=== PATIENT | male | born 1935 | race Caucasian/White ===

== ENCOUNTER 2016-09-11 18:22 | Emergency (ER) | payer OTHER ==
[2016-09-11 18:33] VITALS: TEMP 98.1; O2SAT 98
--- NOTE | 2016-09-11 18:56 | EDPHY ---
H & P Stated Complaint: Acute nausea. Can't keep anything down. Time Seen by Provider: 09/11/16 18:52 HPI/ROS: CHIEF COMPLAINT: Nausea and vomiting HISTORY OF PRESENT ILLNESS: The patient is an 81-year-old gentleman who presents to the ED with acute nausea and vomiting. 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 The patient reports he was discharged approximately 5 days ago. He initially was doing well. He developed 4 episodes of vomiting on Thursday. Since that time he has had early satiety and nausea. He has continued to move his bowels and passed gas. The patient has no fever. REVIEW OF SYSTEMS: A comprehensive 10 point review of systems is otherwise negative aside from elements mentioned in the history of present illness. Source: Patient - Personal History Current Tetanus Diphtheria and Acellular Pertussis (TDAP): Yes - Medical/Surgical History Hx Asthma: No Hx Chronic Respiratory Disease: No Hx Diabetes: No Hx Cardiac Disease: Yes Hx Renal Disease: No Hx Cirrhosis: No Hx Alcoholism: No Hx HIV/AIDS: No Hx Splenectomy or Spleen Trauma: No Other PMH: Atrial fibrillation, irritable bowel disease, kidney stones, diverticulosis - Social History Smoking Status: Former smoker - Physical Exam Exam: General Appearance: Thin male, no acute distress Eyes: Pupils equal and round no pallor or injection ENT, Mouth: Mucous membranes moist Respiratory: There are no retractions, lungs are clear to auscultation Cardiovascular: Regular rate and rhythm Gastrointestinal: Abdomen is soft and nontender, no masses, bowel sounds normal , surgical incision is clean dry and intact Neurological: A&O, normal motor function, normal sensory exam, normal cranial nerves Skin: Warm and dry, no rashes Musculoskeletal: Neck is supple nontender Extremities: symmetrical, full range of motion Constitutional: Initial Vital Signs Temperature (C) 36.7 C 09/11/16 18:28 Heart Rate 64 09/11/16 18:28 Respiratory Rate 18 09/11/16 18:28 Blood Pressure 134/91 H 09/11/16 18:28 O2 Sat (%) 98 09/11/16 18:28 O2 Delivery Mode Room Air Allergies/Adverse Reactions: iodine Allergy (Verified 09/11/12 00:07) Home Medications: Medication Instructions Recorded Sertraline HCl [Zoloft 50mg (*)] 50 mg PO DAILY 10/27/13 Warfarin Sodium [Coumadin 3MG (*)] 3 mg PO DAILY@16 10/27/13 Esomeprazole Magnesium [Nexium] 20 mg PO DAILY 08/29/16 Herbals/Supplements -Info Only 1 ea PO DAILY 08/29/16 Latanoprost 0.005% [Xalatan 0.005% 1 drops EACHEYE HS 08/29/16 (*)] Melatonin [Melatonin 3 MG (*)] 3 mg PO HS 08/29/16 Aspirin [Aspirin 81mg (*)] 81 mg PO DAILY 09/01/16 Cholecalciferol Vit D3 [Vitamin D3 1,000 units PO DAILY 09/01/16 (*)] clonazePAM [Klonopin (*)] 0.75 mg PO HS 09/01/16 Hydrocod/APAP 7.5/325 in 15Ml 10 - 20 ml PO Q4 PRN #0 udcup 09/05/16 [Hycet Oral Liquid (*) 7.5MG-325MG/15ML] Metoclopramide [Reglan 10 mg tab 10 mg PO TID PRN #30 tab 09/11/16 (*)] Medical Decision Making - Diagnostics Imagin View Abdomen History: Abdominal surgery Thursday, nausea and vomiting, diarrhea x2 days, history of aspiration and reflux Findings: The lung bases are well aerated. Heart size is normal. There are scattered small air- fluid levels in the colon. There are no dilated loops. There is a small amount of retroperitoneal gas in the right upper quadrant and a small amount of free air beneath the lateral left hemidiaphragm, likely postoperative. There is atherosclerotic calcification of the aorta. There is no obvious ascites. Impression: Retroperitoneal and free air likely postoperative. No obstruction or obvious ileus ED Course/Re-evaluation: I reviewed the patient's past medical records. The patient's abdominal examination is benign. He is afebrile. His laboratory studies are within normal limits. The patient did have an IV established. He received IV Reglan and 2 L of normal saline. The patient was reportedly discharged with Reglan which he was unable to fill. I did curbside Dr. Guzman who is covering for the patient's primary surgeon Dr. Briseno. The patient will be discharged home with a prescription for Reglan. At this point time there is no evidence of an obvious obstruction. The patient's abdominal examination is benign. His laboratory studies are unremarkable. The patient will be instructed to follow up with Dr. Briseno. He should return to the ED for any worsening symptoms or other concerns. Differential Diagnosis: Differential diagnosis considered includes dehydration, bowel obstruction, metabolic abnormality, constipation, postoperative infection - Data Points Laboratory Results: Laboratory Results 09/11/16 19:25 09/11/16 19:25 09/11/16 19:25 WBC 8.84 10^3/uL (3.80-9.50) RBC 4.61 10^6/uL (4.40-6.38) Hgb 14.2 g/dL (13.7-17.5) Hct 40.0 % (40.0-51.0) MCV 86.8 fL (81.5-99.8) MCH 30.8 pg (27.9-34.1) MCHC 35.5 g/dL (32.4-36.7) RDW 13.0 % (11.5-15.2) Plt Count 329 10^3/uL (150-400) MPV 9.4 fL (8.7-11.7) Neut % (Auto) 73.9 % (39.3-74.2) Lymph % (Auto) 16.3 % (15.0-45.0) [place] % (Auto) 6.4 % (4.5-13.0) Eos % (Auto) 2.6 % (0.6-7.6) Baso % (Auto) 0.5 % (0.3-1.7) Nucleat RBC Rel Count 0.0 % (0.0-0.2) Absolute Neuts (auto) 6.53 H 10^3/uL (1.70-6.50) Absolute Lymphs (auto) 1.44 10^3/uL (1.00-3.00) Absolute Monos (auto) 0.57 10^3/uL (0.30-0.80) Absolute Eos (auto) 0.23 10^3/uL (0.03-0.40) Absolute Basos (auto) 0.04 10^3/uL (0.02-0.10) Absolute Nucleated RBC 0.00 10^3/uL (0-0.01) Immature Gran % 0.3 % (0.0-1.1) Immature Gran # 0.03 10^3/uL (0.00-0.10) Sodium 137 mEq/L (134-144) Potassium 4.0 mEq/L (3.5-5.2) Chloride 99 mEq/L (97-110) Carbon Dioxide 23 mEq/l (22-31) Anion Gap 15 mEq/L (8-16) BUN 23 mg/dL (7-23) Creatinine 0.9 mg/dL (0.7-1.3) Estimated GFR > 60 Glucose 95 mg/dL (70-100) Calcium 9.5 mg/dL (8.5-10.4) Total Bilirubin 2.0 H mg/dL (0.1-1.4) Conjugated Bilirubin 0.4 mg/dL (0.0-0.5) Unconjugated Bilirubin 1.6 H mg/dL (0.0-1.1) AST 28 IU/L (17-59) ALT 48 IU/L (21-72) Alkaline Phosphatase 69 IU/L (38-126) Total Protein 7.1 g/dL (6.3-8.2) Albumin 4.3 g/dL (3.5-5.0) Lipase 134.0 IU/L (23-300) Medications Given: Discontinued Medications Sodium Chloride (Ns) 1,000 mls @ 0 mls/hr IV ONCE ONE PRN Reason: Wide Open Stop: 09/11/16 18:58 Last Admin: 09/11/16 19:51 Dose: 1,000 mls Metoclopramide HCl (Reglan Injection) 10 mg IVP EDNOW ONE Stop: 09/11/16 19:06 Last Admin: 09/11/16 19:50 Dose: 10 mg Departure - Departure Disposition: Home, Routine, Self-Care Clinical Impression: Nausea, History of abdominal surgery Condition: Good Instructions: Acute Nausea and Vomiting (ED) Additional Instructions: 1. Please take Reglan as prescribed for nausea. 2. Please schedule a follow-up appointment with Dr. Brsieno. Please contact his office tomorrow to schedule a follow-up visit. 3. Please return to the ED for markedly worsening symptoms, fever, severe pain, intractable vomiting or other concerns. Referrals: Jt Little MD [Primary Care Provider] - As per Instructions Prescriptions: Metoclopramide [Reglan 10 mg tab (*)] 10 mg PO TID PRN #30 tab PRN Reason: for nausea
[2016-09-11] MEDS ORDERED: NS 1,000 ML IV ONE (18:57)
[2016-09-11] MEDS ORDERED: METOCLOPRAMIDE 10 MG/2 ML VIAL IVP ONE (19:05)
[2016-09-11 19:38] LABS: % IMMATURE GRANULYOCYTES 0.3 % (0.0-1.1); ABSOLUTE IMMATURE GRANULOCYTES 0.03 10^3/uL (0.00-0.10); ADD DIFF? NO; ADD MORPH? NO; ADD SCAN? NO; ATYPICAL LYMPHOCYTE FLAG 40 (0-99); FRAGMENT RBC FLAG 20 (0-99); HEMOGLOBIN 14.2 g/dL (13.7-17.5); LEFT SHIFT FLG 0 (0-99); LIPEMIA HEMOLYSIS FLAG 90 (0-99); MEAN CELL HEMOGLOBIN 30.8 pg (27.9-34.1); MEAN CELL HEMOGLOBIN CONCENTR. 35.5 g/dL (32.4-36.7); MEAN CELL VOLUME 86.8 fL (81.5-99.8); MEAN PLATELET VOLUME 9.4 fL (8.7-11.7); PLATELET CLUMPS FLAG 20 (0-99); PLATELET COUNT 329 10^3/uL (150-400); RED BLOOD CELL COUNT 4.61 10^6/uL (4.40-6.38)
[2016-09-11 19:45] LABS: ALANINE AMINOTRANSFERASE 48 IU/L (21-72); ALBUMIN 4.3 g/dL (3.5-5.0); ALKALINE PHOSPHATASE 69 IU/L (38-126); ANION GAP 15 mEq/L (8-16); ASPARTATE AMINOTRANSFERASE 28 IU/L (17-59); BILIRUBIN-CONJUGATED 0.4 mg/dL (0.0-0.5); BILIRUBIN-UNCONJUGATED 1.6 mg/dL (0.0-1.1); CALCIUM 9.5 mg/dL (8.5-10.4); CARBON DIOXIDE 23 mEq/l (22-31); CHLORIDE 99 mEq/L (97-110); CREATININE 0.9 mg/dL (0.7-1.3); GLOMERULAR FILTRATION RATE > 60; GLUCOSE 95 mg/dL (70-100); SODIUM 137 mEq/L (134-144); TOTAL PROTEIN 7.1 g/dL (6.3-8.2)
--- NOTE | 2016-09-11 19:58 | DX ---
2 View Abdomen History: Abdominal surgery Alicia, nausea and vomiting, diarrhea x2 days, history of aspiration and reflux Findings: The lung bases are well aerated. Heart size is normal. There are scattered small air-fluid levels in the colon. There are no dilated loops. There is a small amount of retroperitoneal gas in th e right upper quadrant and a small amount of free air beneath the lateral left hemidiaphragm, likely postoperative. There is atherosclerotic calcification of the aorta. There is no obvious ascites. Impression: Retroperitoneal and free air likely postoperative. No obstruction or obvious ileus.
[2016-09-11] MEDS ORDERED: METOCLOPRAMIDE 10 MG TAB PO ONE (20:32)
[2016-09-11 20:45] VITALS: BP 128/72; PULSE 78; RESP 16
== END 2016-09-11 20:58 | disposition home or self-care (01) ==
DX: R11.0 Nausea (principal); Z93.4 Other artificial openings of gastrointestinal tract status; Z87.891 Personal history of nicotine dependence; Z79.01 Long term (current) use of anticoagulants; Z79.82 Long term (current) use of aspirin
CPT/HCPCS: 74000; 96361; 96374; 99284; J2765

== ENCOUNTER 2016-09-16 07:51 | Inpatient (IN) | payer OTHER ==
--- NOTE | 2016-09-16 09:51 | US ---
Sonography Limited to the Right Upper Quadrant of the Abdomen Clinical History: 81-year-old male with nausea, vomiting, right upper quadrant pain, and recent gastr ojejunostomy surgery secondary to duodenal stenosis. ICD-10 Diagnostic Codes: R11.2 and R10.11. Technique: A curvilinear 5 MHz transducer was used to sonographically evaluate the right upper quadra nt of the abdomen. Color Doppler was also used. Comparison Studies: Right upper quadrant abdominal sonography, dated October 12, 2008, and CT imaging of the abdomen, dated March 31, 2016. Findings: The pancreatic head, neck, and proximal body are unremarkable. The distal pancreatic body a nd tail are partially obscured by bowel gas. The abdominal aorta is normal in size and tapers normall y with some atherosclerotic features. The visualized IVC is normal in caliber. There is no ascites or right pleural effusion. The hepatic vein trifurcation is normal. The main portal vein is patent. The liver measures 14.1 cm along the right midaxillary line. There is no focal hepatic mass. There is no intrahepatic or extrahepatic bile duct dilatation. The common bile duct measures 2.9 mm. The gallbla dder is partially contracted with a wall thickness of 3.2 mm. There is no pericholecystic fluid, sono graphic Sanchez sign, cholelithiasis, or sludge. The right kidney is normal, measuring 10.2 x 5.6 x 4. 8 cm with a renal cortical thickness of 1.5 cm. There is no hydronephrosis or perinephric fluid. The work from home indicated that there was pronounced bowel gas, limiting aspects of the study. Impression: There is no evidence of cholelithiasis, although the gallbladder is partially contracted and the wall thickness is at the upper limits of normal. There is no bile duct dilatation.
--- NOTE | 2016-09-16 10:32 | DX ---
Limited Single-Contrast Upper GI Clinical History: 81-year-old male who had a gastrojejunostomy on September 02, 2016 (secondary to duo denal stenosis and gastric bowel obstruction), and did well initially but has since developed vomitin g and abdominal fullness. Technique: Effervescent crystals were not administered. The patient ingested a single swallow's worth of thick barium, and imaging of the esophagus was performed in the AP projection followed by images including cine clips at the level of the stomach. Fluoroscopy Time: 1.2 minutes (exposure dose of 11.00 mGy). Comparison Study: Upper GI series, dated June 13, 2016. Findings: There is antegrade esophageal motility; however, when the contrast reaches the gastroesopha geal junction, there is a prompt dilutional effect secondary to massive enlargement of the stomach, w ith the viscus distending to the pelvic inlet where contrast layers. There is an air-fluid level in t he stomach near the left hemidiaphragm, and also a couple of small air-fluid levels to the right of m idline in the central abdomen. I discontinued the study at this point and contacted Franchesca at Dr. Mateus Briseno' office, and will hav e the patient follow up with Dr. Briseno. Impression: Massive dilatation of the stomach, suggestive of gastric outlet obstruction.
[2016-09-16] MEDS ORDERED: HYDROmorphONE/DILAUDID 1 MG/ML SYR IVP PRN (12:49)
[2016-09-16] MEDS: ONDANSETRON 4 MG/2 ML VIAL IVP PRN (13:39)
[2016-09-16] MEDS: D5W 1/2 NS W/ 20 KCl/L 1,000 ML IV SCH ×2 (13:39→20:27)
--- NOTE | 2016-09-16 14:07 | GHP ---
[f rep st] HISTORY AND PHYSICAL DATE OF ADMISSION: 09/16/2016 HISTORY OF PRESENT ILLNESS: The patient is an 81-year-old male who was diagnosed at an outside insti tution with duodenal stenosis. He underwent an open gastrojejunostomy with Dr. Briseno on September 02, 2016. At that time, he had chronic abdominal pain complaints as well as 6 months of weight loss. E ndoscopy and small bowel follow-through were done prior to surgery. All biopsies were benign. He un derwent surgery knowing that his problem could also be related to delayed gastric emptying. His surg tiesha was uncomplicated. At the time, there were no signs of obvious cancer causing blockage. He heal ed well, and was discharged in stable condition. Over the last week, the patient has complained of progressive nausea and sometimes bilious vomiting. He was seen in our clinic and sent for imaging. Ultrasound showed no problems with his gallbladder. A partial upper GI series showed a large distended stomach. He denies fevers or chills. He has d anorexia and small formed bowel movements and is passing gas. 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 MEDICATIONS: Include Coumadin, Zoloft, and clonazepam. PAST SURGICAL HISTORY: Includes gastrojejunostomy as described above. Also, elbow, foot, knee surge ry, hernia repair, and tonsillectomy. ALLERGIES: No known drug allergies. 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 REVIEW OF SYSTEMS: Please see HPI. PHYSICAL EXAMINATION: VITAL SIGNS: Temperature 36.3, oxygenation 100% on room air, respiratory rate 16, heart rate 60, blood pressure 128/90. GENERAL: A somewhat chronically ill-appearing 81-year-ol d male, alert and oriented, in mild distress with dry heaves. HEENT: No jaundice. RESPIRATORY: Cl ear to auscultation bilaterally. CARDIAC: Irregular rhythm, regular rate. ABDOMEN: Distended, mos t markedly on the left side, nontender. Well-healing incisions without erythema or swelling. EXTREM ITIES: Warm and dry without edema. 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 PLAN: Admit the patient for observation. We will place a nasogastric tube for decompression. We wi ll support him with IV fluids, antiemetics as needed. We will be getting an abdominal film in the mo rning to follow his gastric distention. I will also hold his Coumadin in case he needs to go back to the operating room, although this is unlikely at this point. I also discussed with Dr. Briseno who wi ll also see the patient, and is aware of his admission. /[id number]/MODL
[2016-09-16 16:03] LABS: INR 2.31 (0.83-1.16); PROTIME(PATIENT) 25.6 SEC (12.0-15.0)
[2016-09-16 16:41] LABS: ANION GAP 14 mEq/L (8-16); CALCIUM 9.5 mg/dL (8.5-10.4); CARBON DIOXIDE 22 mEq/l (22-31); CHLORIDE 99 mEq/L (97-110); CREATININE 0.9 mg/dL (0.7-1.3); GLOMERULAR FILTRATION RATE > 60; GLUCOSE 139 mg/dL (70-100); POTASSIUM 4.8 mEq/L (3.5-5.2); SODIUM 135 mEq/L (134-144)
[2016-09-16] MEDS: METOCLOPRAMIDE 10 MG/2 ML VIAL IVP SCH (18:55)
[2016-09-16] MEDS ORDERED: LIDOCAINE 2% JELLY 20 ML (UROJECT) ONE (20:08)
[2016-09-16] MEDS ORDERED: LORazepam 2 MG/ML INJ IVP PRN (20:35)
[2016-09-16] MEDS ORDERED: LORazepam 0.5 MG TAB PO PRN (20:35)
[2016-09-17] MEDS: METOCLOPRAMIDE 10 MG/2 ML VIAL IVP SCH ×4 (00:10→18:48)
[2016-09-17] MEDS ORDERED: ZOFRAN 4 MG/5 ML PO PRN (07:38)
[2016-09-17] MEDS ORDERED: LORazepam 0.5 MG TAB PO PRN (07:38)
[2016-09-17] MEDS ORDERED: ONDANSETRON DISINTEGRATING 4 MG TAB PO PRN (07:48)
[2016-09-17] MEDS ORDERED: NON-FORMULARY NEW DRUG (Esomeprazole Magnesium [Nexium] 20 MG) PO SCH (09:00)
[2016-09-17] MEDS: CHOLECALCIFEROL VIT D3 1,000 UNITS TAB PO SCH (10:40)
[2016-09-17] MEDS: PANTOPRAZOLE SODIUM 40 MG TAB PO SCH (10:40)
--- NOTE | 2016-09-17 11:39 | WOCRNPDOC ---
WOCRN Advanced Assessment Note - Skin Integrity Problem, Advanced Assess Coccyx Pressure Injury Dressing Type: Allevyn Life Dressing Description: Clean/Dry, Intact Exudate Amount: None Exudate Characteristic(s): None Integumentary Issue Intervention: Visualized Under Dressing Charly Wound Tissue: Blanching, Erythema, Intact Charly Wound Swelling: None Wound Bed Color: Red Site Odor: None Site Measurement - Head-to-Toe Length X Width X Depth (cm): 1.2cmx0.3eab0tr Pressure Injury Stage: Stage 1 Pressure Injury Present on Admit: Yes (Patient admitted 09/16) Skin Integrity Problem Comment: Small area of non-blanching erythema noted on patient's coccyx, consistent in appearance w/ stage I pressure injury. Patient is cachectic in appearance, and as a result has a prominent coccyx. Blanching erythema charly-wound, presently intact. Discussed the importance of frequent repositioning, side to side, with patient, and he verbalized understanding. Order placed for Accu-max pump to be applied to existing mattress, along w/ protective dressing. Report given to grain elevator operator Katti.
--- NOTE | 2016-09-17 11:53 | SOAPPROG ---
[id number] 09/02/16. Now admitted c massive gastric distention, N/V. NGT placed by Dr. Briseno last evening. 3500cc out. Patient much more comfortable. Will continue to observe while decompressed. AXR today. Consider eventual repeat UGIS vs endoscopy. It's possible pt needs more time for return of gastric motility and for gastrojejunostomy to empty. Continue reglan. Stage 1 sacral decubitus ulcer. Evaluated by wound care. Patient is ambulatory. Recommend get OOB, change positions while in bed. He's currently on R hip. 09/17/16 12:22 Subjective: N/V improved since NG placement. Objective: Vital Signs Temp Pulse Resp BP Pulse Ox 36.3 C 81 16 107/64 94 09/17/16 11:45 09/17/16 11:45 09/17/16 11:45 09/17/16 11:45 09/17/16 11:45 Laboratory Results 09/16/16 15:45 09/16/16 09/17/16 09/18/16 05:59 05:59 05:59 Intake Total 2200 Output Total 5400 Balance -3200 PT 25.6 SEC (12.0-15.0) H 09/16/16 15:45 INR 2.31 (0.83-1.16) H 09/16/16 15:45 alert, nad mmm no jaundice ctab anteriorly abd soft, less L sided distention, +BS ICD10 Worksheet Patient Problems: Problems Problem Status Diagnosed Gastric outlet obstruction Acute
--- NOTE | 2016-09-17 12:57 | DX ---
Two-view abdomen series 1045 hours. History: Gastric distention. History of gastrojejunostomy. Findings: Comparison to upper GI series from September 16, 2016. The gastric distention is not appreciated on today's study with a mild amount residual contrast in th e decompressed stomach. Contrast is also noted in the decompressed small and large bowel. The NG tube tip is positioned above the GE junction. There are no significantly dilated loops of bowel. There ar e no air-fluid levels or free air. No masses are seen. Degenerative changes are noted at the lumbar s pine. Impression: 1. The stomach is now decompressed. 2. NG tube tip just above the GE junction.
[2016-09-17] MEDS: D5W 1/2 NS W/ 20 KCl/L 1,000 ML IV SCH (13:12)
--- NOTE | 2016-09-17 15:39 | SOAPPROG ---
ARIE Progress Note Assessment/Plan: Assessment:Plan: I know Omar form outpt eval. He had GOO from duodenal stenosis that was eventually evaluated at [place] and they rec'd surgery which he had here with Dr. Briseno. 1) GOO - prob functional from surgery, I will follow and if needed we can perform EGD. I did speak with Dr. Briseno and he is optimistic that this may all be functional and will resolve without intervention. Plan as per Dr. Briseno will follow 09/17/16 15:36 Subjective: CC- functional GOO Omar feels better with NGT in place, removed 3000 ml plus of fluid Objective: Vital Signs Temp Pulse Resp BP Pulse Ox 36.3 C 81 16 107/64 94 09/17/16 11:45 09/17/16 11:45 09/17/16 11:45 09/17/16 11:45 09/17/16 11:45 Laboratory Results 09/16/16 15:45 09/16/16 09/17/16 09/18/16 05:59 05:59 05:59 Intake Total 2200 Output Total 5400 Balance -3200 PT 25.6 SEC (12.0-15.0) H 09/16/16 15:45 INR 2.31 (0.83-1.16) H 09/16/16 15:45 A+Ox3 CTA S1S2 +BS, soft some mild tenderness no r/g ICD10 Worksheet Patient Problems: Problems Problem Status Diagnosed Gastric outlet obstruction Acute - ICD10 Problem Qualifiers (1) Gastric outlet obstruction
[2016-09-17] MEDS: MELATONIN 3 MG TAB PO SCH (21:11)
[2016-09-17] MEDS: LATANOPROST 0.005% 2.5 ML OPHT DROPS EACHEYE SCH (21:11)
[2016-09-17] MEDS: clonazePAM 0.5 MG TAB PO SCH (21:11)
[2016-09-18] MEDS: METOCLOPRAMIDE 10 MG/2 ML VIAL IVP SCH ×5 (02:10→23:49)
[2016-09-18] MEDS: D5W 1/2 NS W/ 20 KCl/L 1,000 ML IV SCH (05:59)
[2016-09-18] MEDS: PANTOPRAZOLE SODIUM 40 MG TAB PO SCH (10:29)
[2016-09-18] MEDS: CHOLECALCIFEROL VIT D3 1,000 UNITS TAB PO SCH (10:29)
[2016-09-18] MEDS: PANTOPRAZOLE SODIUM 40 MG in NS 100 ML IV SCH (11:14)
[2016-09-18 11:35] LABS: INR 3.23 (0.83-1.16); PROTIME(PATIENT) 33.5 SEC (12.0-15.0)
--- NOTE | 2016-09-18 12:26 | SOAPPROG ---
SOAP Progress Note Assessment/Plan: Assessment: 81yo male s/p gastrojejunostomy, admitted for nausea, vomiting. Small Bowel follow through shows some emptying into duodenum. frustrated wit the overall situation/condition, wonders what the options are, pain well controlled PE NG tube in place awake alert Abdomen nondistended, incisions clean and dry Plan: await further bowel function greater than 20min spent with pt reviewing options, treatment plan -- explained that after this surgery it take some time for stomach to begin working properly due to many months of being distended. appreciate Dr Khan info given to patient. 09/18/16 12:22 Objective: Vital Signs Temp Pulse Resp BP Pulse Ox 36.6 C 90 16 117/82 H 93 09/18/16 08:40 09/18/16 08:40 09/18/16 08:40 09/18/16 08:40 09/18/16 08:40 Laboratory Results 09/16/16 15:45 09/17/16 09/18/16 09/19/16 05:59 05:59 05:59 Intake Total 2200 1850 1393 Output Total 5400 1400 1400 Balance -3200 450 -7 PT 33.5 SEC (12.0-15.0) H 09/18/16 11:20 INR 3.23 (0.83-1.16) H 09/18/16 11:20 ICD10 Worksheet Patient Problems: Problems Problem Status Diagnosed Gastric outlet obstruction Acute
[2016-09-18] MEDS ORDERED: D10W 1,000 ML IV PRN (12:30)
[2016-09-18] MEDS ORDERED: ALTEPLASE 2 MG VIAL IVP PRN (12:32)
--- NOTE | 2016-09-18 12:36 | SOAPPROG ---
ARIE Progress Note Assessment/Plan: Assessment:Plan: I know Omar form outpt eval. He had GOO from duodenal stenosis that was eventually evaluated at [place] and they rec'd surgery which he had here with Dr. Briseno. 1) GOO - prob functional from surgery, I will follow and if needed we can perform EGD. I did speak with Dr. Briseno and he is optimistic that this may all be functional and will resolve without intervention. Plan as per Dr. Briseno will follow 09/17/16 15:36 09/18/16 12:33 as above 1) GOO - likely functional from edema and poor gastric motility. I will speak with Dr. Briseno today. For now conservative tx 2) Nutrition - possible IV nutrition if NGT and NPO will be a number of days will follow Subjective: CC- functional GOO, hx duodenal stenosis s/p gastrojej Omar is frustrated with events, he has been dealing with this for approx 7 months he has lost a lot of weight and is debilitated from al of this Objective: Vital Signs Temp Pulse Resp BP Pulse Ox 36.6 C 90 16 117/82 H 93 09/18/16 08:40 09/18/16 08:40 09/18/16 08:40 09/18/16 08:40 09/18/16 08:40 Laboratory Results 09/16/16 15:45 09/17/16 09/18/16 09/19/16 05:59 05:59 05:59 Intake Total 2200 1850 1393 Output Total 5400 1400 1400 Balance -3200 450 -7 PT 33.5 SEC (12.0-15.0) H 09/18/16 11:20 INR 3.23 (0.83-1.16) H 09/18/16 11:20 A+Ox3 CTA S1S2, +BS, soft tender no r/g ICD10 Worksheet Patient Problems: Problems Problem Status Diagnosed Gastric outlet obstruction Acute - ICD10 Problem Qualifiers (1) Gastric outlet obstruction
[2016-09-18 13:27] LABS: % IMMATURE GRANULYOCYTES 0.5 % (0.0-1.1); ABSOLUTE IMMATURE GRANULOCYTES 0.06 10^3/uL (0.00-0.10); ADD DIFF? NO; ADD MORPH? NO; ADD SCAN? NO; ATYPICAL LYMPHOCYTE FLAG 20 (0-99); FRAGMENT RBC FLAG 0 (0-99); HEMOGLOBIN 13.6 g/dL (13.7-17.5); LEFT SHIFT FLG 30 (0-99); LIPEMIA HEMOLYSIS FLAG 90 (0-99); MEAN CELL HEMOGLOBIN 30.8 pg (27.9-34.1); MEAN CELL HEMOGLOBIN CONCENTR. 34.9 g/dL (32.4-36.7); MEAN CELL VOLUME 88.2 fL (81.5-99.8); MEAN PLATELET VOLUME 9.9 fL (8.7-11.7); PLATELET CLUMPS FLAG 0 (0-99); PLATELET COUNT 339 10^3/uL (150-400); RED BLOOD CELL COUNT 4.42 10^6/uL (4.40-6.38); RED CELL DISTRIBUTION WIDTH 13.1 % (11.5-15.2)
[2016-09-18 13:48] LABS: INR 3.16 (0.83-1.16); PROTIME(PATIENT) 32.9 SEC (12.0-15.0)
[2016-09-18 13:49] LABS: ALANINE AMINOTRANSFERASE 22 IU/L (21-72); ALBUMIN 3.2 g/dL (3.5-5.0); ALKALINE PHOSPHATASE 66 IU/L (38-126); ANION GAP 13 mEq/L (8-16); APTT 45.9 SEC (23.0-38.0); ASPARTATE AMINOTRANSFERASE 14 IU/L (17-59); BILIRUBIN,TOTAL 1.4 mg/dL (0.1-1.4); CALCIUM 9.2 mg/dL (8.5-10.4); CARBON DIOXIDE 20 mEq/l (22-31); CHLORIDE 104 mEq/L (97-110); CREATININE 0.7 mg/dL (0.7-1.3); GLOMERULAR FILTRATION RATE > 60; GLUCOSE 114 mg/dL (70-100); MAGNESIUM 2.2 mg/dL (1.6-2.3); POTASSIUM 4.5 mEq/L (3.5-5.2); SODIUM 137 mEq/L (134-144); TOTAL PROTEIN 6.2 g/dL (6.3-8.2); TRIGLYCERIDE 68 mg/dL (40-150)
--- NOTE | 2016-09-18 16:18 | IR ---
Imaging-Guided Peripherally Inserted Central Catheter History: Central line access for malnutrition. Prophylactic Antibiotic: Cefazolin was not ordered and administered for antimicrobial prophylaxis be cause it was not medically necessary for this procedure. VTE Prophylaxis: There is not an order for VTE prophylaxis to be given within 24 hours after procedu re end time because it was not medically necessary for this procedure. Crosscutting Measure: Patient's current list of medications including all known prescriptions, over- the-counters, herbals, and vitamin/mineral/dietary supplements are reviewed. Medications' name, dosa ge, frequency, and route of administration are confirmed. Technique: Following informed consent, the right arm was prepped and draped in sterile fashion. 1% Xy locaine was used for local anesthetic. All elements of maximal sterile barrier technique including cap, mask, sterile gown, sterile gloves, large sterile sheet, hand hygiene, and 2% chlorhexidine for cutaneous antisepsis, followed. Ultrasound evaluation of potential access site was performed. After successfully identifying a patent vessel, ultrasound guidance was used to puncture the vein. A permanent recording was created for the patient's record. Ultrasound transducer was placed in sterile sleeve and used for real-time imaging guidance over steri le gel to enter the basilic vein. 0.018 measuring wire was passed centrally under fluoroscopic contro l. A skin aiyana with scalpel blade was followed by removing the access needle. A 4 Congolese peel-away sh eath was followed by a 4 Congolese single-lumen central catheter, trimmed to 45 cm length. The tip of t he catheter was positioned centrally and the guidewire removed. A single fluoroscopic spot image was obtained in inspiration. The hub of the catheter was fixed to the skin using a sterile StatLock adhes dominick device, and a sterile dressing was applied. The catheter was irrigated. Findings: The tip of the central catheter terminates at the junction of the superior vena cava and th e right atrium. Fluoroscopy: 0.1 minutes, 1 images Impression: 5 Congolese double lumen peripherally inserted central catheter is ready to use.
[2016-09-18] MEDS: TPN 1 EA BAG IV SCH (20:30)
[2016-09-18] MEDS: LATANOPROST 0.005% 2.5 ML OPHT DROPS EACHEYE SCH (22:02)
[2016-09-18] MEDS: clonazePAM 0.5 MG TAB PO SCH (22:02)
[2016-09-18] MEDS: MELATONIN 3 MG TAB PO SCH (22:02)
[2016-09-19] MEDS: METOCLOPRAMIDE 10 MG/2 ML VIAL IVP SCH ×5 (05:39→19:57)
[2016-09-19 05:55] LABS: % IMMATURE GRANULYOCYTES 0.5 % (0.0-1.1); ABSOLUTE IMMATURE GRANULOCYTES 0.06 10^3/uL (0.00-0.10); ADD DIFF? NO; ADD MORPH? NO; ADD SCAN? NO; ATYPICAL LYMPHOCYTE FLAG 20 (0-99); FRAGMENT RBC FLAG 0 (0-99); HEMATOCRIT 38.2 % (40.0-51.0); HEMOGLOBIN 13.4 g/dL (13.7-17.5); LEFT SHIFT FLG 0 (0-99); LIPEMIA HEMOLYSIS FLAG 90 (0-99); MEAN CELL HEMOGLOBIN 31.8 pg (27.9-34.1); MEAN CELL HEMOGLOBIN CONCENTR. 35.1 g/dL (32.4-36.7); MEAN CELL VOLUME 90.5 fL (81.5-99.8); MEAN PLATELET VOLUME 10.3 fL (8.7-11.7); PLATELET CLUMPS FLAG 10 (0-99); PLATELET COUNT 344 10^3/uL (150-400); RED BLOOD CELL COUNT 4.22 10^6/uL (4.40-6.38); RED CELL DISTRIBUTION WIDTH 13.2 % (11.5-15.2)
[2016-09-19 06:05] LABS: APTT 42.3 SEC (23.0-38.0); INR 2.88 (0.83-1.16); PROTIME(PATIENT) 30.5 SEC (12.0-15.0)
[2016-09-19 06:11] LABS: ALANINE AMINOTRANSFERASE 23 IU/L (21-72); ALKALINE PHOSPHATASE 44 IU/L (38-126); ANION GAP 13 mEq/L (8-16); ASPARTATE AMINOTRANSFERASE 20 IU/L (17-59); BILIRUBIN,TOTAL 1.4 mg/dL (0.1-1.4); CALCIUM 8.5 mg/dL (8.5-10.4); CARBON DIOXIDE 21 mEq/l (22-31); CHLORIDE 101 mEq/L (97-110); CREATININE 0.8 mg/dL (0.7-1.3); GLOMERULAR FILTRATION RATE > 60; POTASSIUM 4.3 mEq/L (3.5-5.2); SODIUM 135 mEq/L (134-144); TOTAL PROTEIN 5.8 g/dL (6.3-8.2)
[2016-09-19 06:29] LABS: GLUCOSE 608 mg/dL (70-100)
[2016-09-19 06:44] LABS: % IMMATURE GRANULYOCYTES 0.6 % (0.0-1.1); ABSOLUTE IMMATURE GRANULOCYTES 0.08 10^3/uL (0.00-0.10); ADD DIFF? NO; ADD MORPH? NO; ADD SCAN? NO; ATYPICAL LYMPHOCYTE FLAG 20 (0-99); FRAGMENT RBC FLAG 0 (0-99); HEMATOCRIT 38.3 % (40.0-51.0); HEMOGLOBIN 13.3 g/dL (13.7-17.5); LEFT SHIFT FLG 0 (0-99); LIPEMIA HEMOLYSIS FLAG 90 (0-99); MEAN CELL HEMOGLOBIN 30.6 pg (27.9-34.1); MEAN CELL HEMOGLOBIN CONCENTR. 34.7 g/dL (32.4-36.7); MEAN CELL VOLUME 88.2 fL (81.5-99.8); MEAN PLATELET VOLUME 9.8 fL (8.7-11.7); PLATELET CLUMPS FLAG 0 (0-99); PLATELET COUNT 327 10^3/uL (150-400); RED BLOOD CELL COUNT 4.34 10^6/uL (4.40-6.38)
[2016-09-19 07:04] LABS: ANION GAP 13 mEq/L (8-16); CALCIUM 9.1 mg/dL (8.5-10.4); CARBON DIOXIDE 22 mEq/l (22-31); CHLORIDE 105 mEq/L (97-110); CREATININE 0.7 mg/dL (0.7-1.3); GLOMERULAR FILTRATION RATE > 60; GLUCOSE 134 mg/dL (70-100); POTASSIUM 4.2 mEq/L (3.5-5.2); SODIUM 140 mEq/L (134-144)
[2016-09-19] MEDS: CHOLECALCIFEROL VIT D3 1,000 UNITS TAB PO SCH (09:49)
[2016-09-19] MEDS: PANTOPRAZOLE SODIUM 40 MG in NS 100 ML IV SCH (09:50)
--- NOTE | 2016-09-19 12:16 | SOAPPROG ---
SOKATERIN Progress Note Assessment/Plan: Assessment: 81yo male s/p gastrojejunostomy, admitted for nausea, vomiting. Small Bowel follow through shows some emptying into duodenum. frustrated wit the overall situation/condition, wonders what the options are, pain well controlled PE NG tube in place awake alert Abdomen nondistended, incisions clean and dry seen by Dr Briseno Plan continue NG tube for some time, hopefully will resolve with continued conservative management. 09/18/16 12:22 09/19/16 12:15 Objective: Vital Signs Temp Pulse Resp BP Pulse Ox 36.6 C 88 16 141/71 H 93 09/19/16 08:05 09/19/16 08:05 09/19/16 08:05 09/19/16 08:05 09/19/16 08:05 Laboratory Results 09/19/16 06:33 09/19/16 06:33 09/18/16 09/19/16 09/20/16 05:59 05:59 05:59 Intake Total 1850 2518 867 Output Total 1400 2350 Balance 450 168 867 PT 30.5 SEC (12.0-15.0) H 09/19/16 05:45 INR 2.88 (0.83-1.16) H 09/19/16 05:45 ICD10 Worksheet Patient Problems: Problems Problem Status Diagnosed Gastric outlet obstruction Acute
--- NOTE | 2016-09-19 15:58 | SOAPPROG ---
ARIE Progress Note Assessment/Plan: Assessment:Plan: I know Omar form outpt eval. 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 Briseno. 1) GOO - prob functional from surgery, I will follow and if needed we can perform EGD. I did speak with Dr. Briseno and he is optimistic that this may all be functional and will resolve without intervention. Plan as per Dr. Briseno will follow 09/17/16 15:36 09/18/16 12:33 as above 1) GOO - likely functional from edema and poor gastric motility. I will speak with Dr. Briseno today. For now conservative tx 2) Nutrition - possible IV nutrition if NGT and NPO will be a number of days will follow 09/19/16 15:55 as above no change in plan still optimistic that conservative tx will resolve issue he is getting some IV nutrition he wanted an enema tonight which I ordered Dr. Monroe is picking up inpt service at 5pm. he doesn't know Omar at all, so I will ask him to follow on computer unless re-consulted thank you Subjective: cc- functional goo, hx duodenal stenosis s/p gastrojejunostomy Omar seems in better spirits today His and sister are in room and I answered all their questions Omar did request an enema tonight Objective: Vital Signs Temp Pulse Resp BP Pulse Ox 36.6 C 88 16 141/71 H 93 09/19/16 08:05 09/19/16 08:05 09/19/16 08:05 09/19/16 08:05 09/19/16 08:05 Laboratory Results 09/19/16 06:33 09/19/16 06:33 09/18/16 09/19/16 09/20/16 05:59 05:59 05:59 Intake Total 1850 2518 867 Output Total 1400 2350 Balance 450 168 867 PT 30.5 SEC (12.0-15.0) H 09/19/16 05:45 INR 2.88 (0.83-1.16) H 09/19/16 05:45 A+Ox3 CTA S1S2, RRR +BS, soft ICD10 Worksheet Patient Problems: Problems Problem Status Diagnosed Gastric outlet obstruction Acute - ICD10 Problem Qualifiers (1) Gastric outlet obstruction
[2016-09-19] MEDS: MELATONIN 3 MG TAB PO SCH (20:15)
[2016-09-19] MEDS: clonazePAM 0.5 MG TAB PO SCH (20:15)
[2016-09-19] MEDS: LATANOPROST 0.005% 2.5 ML OPHT DROPS EACHEYE SCH (20:16)
[2016-09-19] MEDS: TPN 1 EA BAG IV SCH (21:47)
[2016-09-20] MEDS: METOCLOPRAMIDE 10 MG/2 ML VIAL IVP SCH ×4 (00:19→18:30)
[2016-09-20 04:34] LABS: % IMMATURE GRANULYOCYTES 0.8 % (0.0-1.1); ADD DIFF? NO; ADD MORPH? NO; ADD SCAN? NO; ATYPICAL LYMPHOCYTE FLAG 20 (0-99); FRAGMENT RBC FLAG 0 (0-99); HEMATOCRIT 39.3 % (40.0-51.0); HEMOGLOBIN 13.4 g/dL (13.7-17.5); LEFT SHIFT FLG 0 (0-99); LIPEMIA HEMOLYSIS FLAG 90 (0-99); MEAN CELL HEMOGLOBIN 30.4 pg (27.9-34.1); MEAN CELL HEMOGLOBIN CONCENTR. 34.1 g/dL (32.4-36.7); MEAN CELL VOLUME 89.1 fL (81.5-99.8); MEAN PLATELET VOLUME 9.9 fL (8.7-11.7); PLATELET CLUMPS FLAG 0 (0-99); PLATELET COUNT 334 10^3/uL (150-400); RED BLOOD CELL COUNT 4.41 10^6/uL (4.40-6.38); RED CELL DISTRIBUTION WIDTH 12.8 % (11.5-15.2)
[2016-09-20 04:46] LABS: ALANINE AMINOTRANSFERASE 41 IU/L (21-72); ALBUMIN 3.2 g/dL (3.5-5.0); ALKALINE PHOSPHATASE 73 IU/L (38-126); ANION GAP 12 mEq/L (8-16); ASPARTATE AMINOTRANSFERASE 34 IU/L (17-59); BILIRUBIN,TOTAL 1.6 mg/dL (0.1-1.4); CALCIUM 9.1 mg/dL (8.5-10.4); CARBON DIOXIDE 25 mEq/l (22-31); CHLORIDE 104 mEq/L (97-110); CREATININE 0.7 mg/dL (0.7-1.3); GLOMERULAR FILTRATION RATE > 60; GLUCOSE 122 mg/dL (70-100); MAGNESIUM 2.1 mg/dL (1.6-2.3); POTASSIUM 3.6 mEq/L (3.5-5.2); SODIUM 141 mEq/L (134-144); TOTAL PROTEIN 6.3 g/dL (6.3-8.2)
[2016-09-20 04:49] LABS: INR 1.8 (0.83-1.16)
[2016-09-20 04:50] LABS: APTT 39.3 SEC (23.0-38.0)
[2016-09-20] MEDS: CHOLECALCIFEROL VIT D3 1,000 UNITS TAB PO SCH (08:54)
[2016-09-20] MEDS: PANTOPRAZOLE SODIUM 40 MG in NS 100 ML IV SCH (08:54)
--- NOTE | 2016-09-20 11:08 | SOAPPROG ---
SOAP Progress Note Assessment/Plan: Assessment: s/p gastrojejunostomy for gastric outlet obstruction. NG fell out this am Has excellent bowel sounds Will not replace NG at this time Max 8 oz clears q 8 hours S: Feeling well, no complaints Plan: 09/20/16 11:06 Objective: Vital Signs Temp Pulse Resp BP Pulse Ox 36.2 C 77 16 140/70 H 94 09/20/16 08:05 09/20/16 08:05 09/20/16 08:05 09/20/16 08:05 09/20/16 08:05 Laboratory Results 09/20/16 04:20 09/20/16 04:20 09/19/16 09/20/16 09/21/16 05:59 05:59 05:59 Intake Total 2518 1491 Output Total 2350 1044 Balance 168 447 PT 21.0 SEC (12.0-15.0) H D 09/20/16 04:20 INR 1.80 (0.83-1.16) H 09/20/16 04:20 Physical Exam - Physical Exam General Appearance: cachetic, other (sitting up in bed, appears comfortable) EENT: normal ENT inspection Respiratory: lungs clear, normal breath sounds Cardiac/Chest: regular rate, rhythm Abdomen: normal bowel sounds, soft, other (scaphoid) Male Genitalia: deferred Skin: warm/dry ICD10 Worksheet Patient Problems: Problems Problem Status Diagnosed Gastric outlet obstruction Acute
[2016-09-20] MEDS: ONDANSETRON 4 MG/2 ML VIAL IVP PRN (16:13)
[2016-09-20 19:26] LABS: GLUCOSE 120 mg/dL (70-100)
[2016-09-20] MEDS: clonazePAM 0.5 MG TAB PO SCH (21:24)
[2016-09-20] MEDS: LATANOPROST 0.005% 2.5 ML OPHT DROPS EACHEYE SCH (21:24)
[2016-09-20] MEDS: MELATONIN 3 MG TAB PO SCH (21:25)
[2016-09-20] MEDS: NS 1,000 ML IV SCH (21:35)
[2016-09-20] MEDS: TPN 1 EA BAG IV SCH (21:40)
[2016-09-21] MEDS: METOCLOPRAMIDE 10 MG/2 ML VIAL IVP SCH ×5 (00:24→20:20)
[2016-09-21 05:46] LABS: % IMMATURE GRANULYOCYTES 0.3 % (0.0-1.1); ABSOLUTE IMMATURE GRANULOCYTES 0.03 10^3/uL (0.00-0.10); ADD DIFF? NO; ADD MORPH? NO; ADD SCAN? NO; ATYPICAL LYMPHOCYTE FLAG 20 (0-99); FRAGMENT RBC FLAG 0 (0-99); HEMOGLOBIN 12.3 g/dL (13.7-17.5); LEFT SHIFT FLG 0 (0-99); LIPEMIA HEMOLYSIS FLAG 90 (0-99); MEAN CELL HEMOGLOBIN 31.4 pg (27.9-34.1); MEAN CELL HEMOGLOBIN CONCENTR. 35.1 g/dL (32.4-36.7); MEAN CELL VOLUME 89.3 fL (81.5-99.8); MEAN PLATELET VOLUME 9.7 fL (8.7-11.7); PLATELET CLUMPS FLAG 0 (0-99); PLATELET COUNT 298 10^3/uL (150-400); RED BLOOD CELL COUNT 3.92 10^6/uL (4.40-6.38); RED CELL DISTRIBUTION WIDTH 12.8 % (11.5-15.2)
[2016-09-21 06:23] LABS: INR 1.53 (0.83-1.16); PROTIME(PATIENT) 18.4 SEC (12.0-15.0)
[2016-09-21 06:24] LABS: APTT 39.2 SEC (23.0-38.0)
[2016-09-21 06:31] LABS: ALANINE AMINOTRANSFERASE 92 IU/L (21-72); ALBUMIN 2.5 g/dL (3.5-5.0); ALKALINE PHOSPHATASE 81 IU/L (38-126); ANION GAP 12 mEq/L (8-16); ASPARTATE AMINOTRANSFERASE 65 IU/L (17-59); BILIRUBIN,TOTAL 1.5 mg/dL (0.1-1.4); CALCIUM 8.3 mg/dL (8.5-10.4); CARBON DIOXIDE 21 mEq/l (22-31); CHLORIDE 103 mEq/L (97-110); CREATININE 0.6 mg/dL (0.7-1.3); GLOMERULAR FILTRATION RATE > 60; GLUCOSE 124 mg/dL (70-100); MAGNESIUM 1.7 mg/dL (1.6-2.3); POTASSIUM 3.5 mEq/L (3.5-5.2); SODIUM 136 mEq/L (134-144); TOTAL PROTEIN 5.5 g/dL (6.3-8.2)
[2016-09-21] MEDS: CHOLECALCIFEROL VIT D3 1,000 UNITS TAB PO SCH (09:13)
[2016-09-21] MEDS: PANTOPRAZOLE SODIUM 40 MG in NS 100 ML IV SCH (09:13)
--- NOTE | 2016-09-21 09:37 | SOAPPROG ---
ARIE Progress Note Assessment/Plan: Assessment: s/p gastrojejunostomy for gastric outlet obstruction. Passing flatus Has excellent bowel sounds Clears Keep TPN for today S: Feeling well, wants to go home Scaphoid abdomen. BS present. Soft, Non tender Plan: 09/20/16 11:06 09/21/16 09:36 Objective: Vital Signs Temp Pulse Resp BP Pulse Ox 36.9 C 86 16 119/70 93 09/21/16 08:35 09/21/16 08:35 09/21/16 08:35 09/21/16 08:35 09/21/16 08:35 Laboratory Results 09/21/16 05:40 09/21/16 05:40 09/20/16 09/21/16 09/22/16 05:59 05:59 05:59 Intake Total 1491 1744 Output Total 1044 300 Balance 447 1444 PT 18.4 SEC (12.0-15.0) H 09/21/16 06:05 INR 1.53 (0.83-1.16) H 09/21/16 06:05 ICD10 Worksheet Patient Problems: Problems Problem Status Diagnosed Gastric outlet obstruction Acute
[2016-09-21] MEDS: POTASSIUM Cl (KCl) 50 ML IV SCH ×3 (10:03→13:13)
[2016-09-21] MEDS: ONDANSETRON 4 MG/2 ML VIAL IVP PRN (19:17)
[2016-09-21] MEDS: TPN 1 EA BAG IV SCH (21:17)
[2016-09-21] MEDS: LATANOPROST 0.005% 2.5 ML OPHT DROPS EACHEYE SCH (23:18)
[2016-09-21] MEDS: clonazePAM 0.5 MG TAB PO SCH (23:18)
[2016-09-21] MEDS: MELATONIN 3 MG TAB PO SCH (23:26)
[2016-09-22] MEDS: NS 1,000 ML IV SCH (04:41)
[2016-09-22] MEDS: METOCLOPRAMIDE 10 MG/2 ML VIAL IVP SCH ×3 (06:30→18:05)
[2016-09-22 06:43] LABS: % IMMATURE GRANULYOCYTES 0.7 % (0.0-1.1); ABSOLUTE IMMATURE GRANULOCYTES 0.06 10^3/uL (0.00-0.10); ADD DIFF? NO; ADD MORPH? NO; ADD SCAN? NO; ATYPICAL LYMPHOCYTE FLAG 50 (0-99); FRAGMENT RBC FLAG 0 (0-99); HEMATOCRIT 33.3 % (40.0-51.0); HEMOGLOBIN 11.6 g/dL (13.7-17.5); LEFT SHIFT FLG 0 (0-99); LIPEMIA HEMOLYSIS FLAG 90 (0-99); MEAN CELL HEMOGLOBIN 30.9 pg (27.9-34.1); MEAN CELL HEMOGLOBIN CONCENTR. 34.8 g/dL (32.4-36.7); MEAN CELL VOLUME 88.8 fL (81.5-99.8); MEAN PLATELET VOLUME 9.9 fL (8.7-11.7); PLATELET CLUMPS FLAG 10 (0-99); PLATELET COUNT 258 10^3/uL (150-400); RED BLOOD CELL COUNT 3.75 10^6/uL (4.40-6.38); RED CELL DISTRIBUTION WIDTH 12.7 % (11.5-15.2)
[2016-09-22 06:55] LABS: INR 1.43 (0.83-1.16); PROTIME(PATIENT) 17.4 SEC (12.0-15.0)
[2016-09-22 06:56] LABS: APTT 38.8 SEC (23.0-38.0)
[2016-09-22 07:08] LABS: ALANINE AMINOTRANSFERASE 77 IU/L (21-72); ALBUMIN 2.5 g/dL (3.5-5.0); ALKALINE PHOSPHATASE 79 IU/L (38-126); ANION GAP 9 mEq/L (8-16); ASPARTATE AMINOTRANSFERASE 39 IU/L (17-59); BILIRUBIN,TOTAL 0.9 mg/dL (0.1-1.4); CALCIUM 7.9 mg/dL (8.5-10.4); CARBON DIOXIDE 23 mEq/l (22-31); CHLORIDE 102 mEq/L (97-110); CREATININE 0.5 mg/dL (0.7-1.3); GLOMERULAR FILTRATION RATE > 60; GLUCOSE 104 mg/dL (70-100); MAGNESIUM 1.7 mg/dL (1.6-2.3); POTASSIUM 3.9 mEq/L (3.5-5.2); SODIUM 134 mEq/L (134-144); TRIGLYCERIDE 46 mg/dL (40-150)
--- NOTE | 2016-09-22 09:34 | SOAPPROG ---
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 Now admitted c massive gastric distention, N/V. 09/22/16 09:33 Objective: Vital Signs Temp Pulse Resp BP Pulse Ox 36.7 C 70 16 143/80 H 95 09/22/16 07:57 09/22/16 07:57 09/22/16 07:57 09/22/16 07:57 09/22/16 07:57 Laboratory Results 09/22/16 06:30 09/22/16 06:30 09/21/16 09/22/16 09/23/16 05:59 05:59 05:59 Intake Total 1744 3063 Output Total 300 Balance 1444 3063 PT 17.4 SEC (12.0-15.0) H 09/22/16 06:30 INR 1.43 (0.83-1.16) H 09/22/16 06:30 ICD10 Worksheet Patient Problems: Problems Problem Status Diagnosed Gastric outlet obstruction Acute
--- NOTE | 2016-09-22 09:40 | SOAPPROG ---
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 Now admitted c massive gastric distention, N/V. NG out. Tolerating clears. Continue clears. Continue TPN. Continue reglan. Restart coumadin tomorrow if continues to tolerate diet. Seen and examined c Dr. Guzman. S: Diarrhea overnight. Some waves of mild nausea, but no emesis. O: alert, nad ctab anteriorly scaphoid abdomen. BS present. Soft, Non tender. 09/22/16 09:40 Objective: Vital Signs Temp Pulse Resp BP Pulse Ox 36.7 C 70 16 143/80 H 95 09/22/16 07:57 09/22/16 07:57 09/22/16 07:57 09/22/16 07:57 09/22/16 07:57 Laboratory Results 09/22/16 06:30 09/22/16 06:30 09/21/16 09/22/16 09/23/16 05:59 05:59 05:59 Intake Total 1744 3063 Output Total 300 Balance 1444 3063 PT 17.4 SEC (12.0-15.0) H 09/22/16 06:30 INR 1.43 (0.83-1.16) H 09/22/16 06:30 ICD10 Worksheet Patient Problems: Problems Problem Status Diagnosed Gastric outlet obstruction Acute
[2016-09-22] MEDS: PANTOPRAZOLE SODIUM 40 MG in NS 100 ML IV SCH (10:04)
[2016-09-22] MEDS: CHOLECALCIFEROL VIT D3 1,000 UNITS TAB PO SCH (10:05)
[2016-09-22] MEDS: TPN 1 EA BAG IV SCH (20:34)
[2016-09-22] MEDS: clonazePAM 0.5 MG TAB PO SCH (22:29)
[2016-09-22] MEDS: MELATONIN 3 MG TAB PO SCH (22:29)
[2016-09-22] MEDS: LATANOPROST 0.005% 2.5 ML OPHT DROPS EACHEYE SCH (22:35)
[2016-09-23] MEDS: METOCLOPRAMIDE 10 MG/2 ML VIAL IVP SCH ×4 (01:08→17:12)
[2016-09-23] MEDS: PANTOPRAZOLE SODIUM 40 MG in NS 100 ML IV SCH (08:22)
[2016-09-23] MEDS: CHOLECALCIFEROL VIT D3 1,000 UNITS TAB PO SCH (08:23)
[2016-09-23] MEDS: NS 1,000 ML IV SCH ×2 (08:24→21:32)
--- NOTE | 2016-09-23 10:21 | SOAPPROG ---
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 Now admitted c massive gastric distention, N/V. Tolerating clear liquids. AXR today. If AXR without gastric distention then consider full liquid diet later today. May still need UGIS/SBFT study. Restart coumadin as need for surgical intervention becoming less likely. 09/23/16 10:21 Subjective: No nausea yesterday. (Had waves of nausea the day prior). Having clears. Diarrhea improved. No pain. Objective: Vital Signs Temp Pulse Resp BP Pulse Ox 36.6 C 73 16 122/70 H 95 09/23/16 08:08 09/23/16 08:08 09/23/16 08:08 09/23/16 08:08 09/23/16 08:08 Laboratory Results 09/22/16 06:30 09/22/16 06:30 09/22/16 09/23/16 09/24/16 05:59 05:59 05:59 Intake Total 3063 2420 Output Total 980 Balance 3063 1440 PT 17.4 SEC (12.0-15.0) H 09/22/16 06:30 INR 1.43 (0.83-1.16) H 09/22/16 06:30 alert, nad mmm ctab anteriorly abd soft, NT, well healing inc, no erythema. ICD10 Worksheet Patient Problems: Problems Problem Status Diagnosed Gastric outlet obstruction Acute
[2016-09-23] MEDS: ENOXAPARIN 40 MG/0.4 ML SYR SC SCH (11:19)
[2016-09-23] MEDS ORDERED: WARFARIN SODIUM 3 MG TAB PO SCH (16:00)
[2016-09-23] MEDS: MELATONIN 3 MG TAB PO SCH (21:31)
[2016-09-23] MEDS: clonazePAM 0.5 MG TAB PO SCH (21:31)
[2016-09-23] MEDS: TPN 1 EA BAG IV SCH (21:32)
[2016-09-23] MEDS: LATANOPROST 0.005% 2.5 ML OPHT DROPS EACHEYE SCH (21:40)
[2016-09-24 06:02] VITALS: PULSE 70
[2016-09-24] MEDS: METOCLOPRAMIDE 10 MG/2 ML VIAL IVP SCH ×3 (06:22→14:42)
[2016-09-24 06:41] LABS: ANION GAP 7 mEq/L (8-16); CALCIUM 7.9 mg/dL (8.5-10.4); CARBON DIOXIDE 25 mEq/l (22-31); CHLORIDE 102 mEq/L (97-110); CREATININE 0.6 mg/dL (0.7-1.3); GLOMERULAR FILTRATION RATE > 60; GLUCOSE 106 mg/dL (70-100); POTASSIUM 4.2 mEq/L (3.5-5.2); SODIUM 134 mEq/L (134-144)
[2016-09-24 08:26] VITALS: BP 119/70; RESP 20; TEMP 98.1; O2SAT 94
--- NOTE | 2016-09-24 08:59 | SOAPPROG ---
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 Now admitted c massive gastric distention, N/V. Tolerating full liquids but minimal intake. Will get UGI to evaluate patency of gastrojejunostomy. If open, then likely d/c to home on a full liquid diet. 09/24/16 08:56 Subjective: Had Vin, applesauce, and a little bit of smoothie. No N/V. Very eager to go home. Objective: Vital Signs Temp Pulse Resp BP Pulse Ox 36.7 C 70 20 119/70 94 09/24/16 08:24 09/24/16 08:24 09/24/16 08:24 09/24/16 08:24 09/24/16 08:24 Laboratory Results 09/22/16 06:30 09/24/16 06:00 09/23/16 09/24/16 09/25/16 05:59 05:59 05:59 Intake Total 2420 3000 Output Total 980 500 Balance 1440 2500 PT 17.4 SEC (12.0-15.0) H 09/22/16 06:30 INR 1.43 (0.83-1.16) H 09/22/16 06:30 alert, nad no wob rrr abd soft, NTND, inc cdi ICD10 Worksheet Patient Problems: Problems Problem Status Diagnosed Gastric outlet obstruction Acute
[2016-09-24] MEDS: CHOLECALCIFEROL VIT D3 1,000 UNITS TAB PO SCH (09:48)
[2016-09-24] MEDS: PANTOPRAZOLE SODIUM 40 MG in NS 100 ML IV SCH (09:48)
[2016-09-24] MEDS: ENOXAPARIN 40 MG/0.4 ML SYR SC SCH (09:48)
--- NOTE | 2016-09-24 10:31 | WOCRNPDOC ---
NOELLE Advanced Assessment Note - Skin Integrity Problem, Advanced Assess Coccyx Pressure Injury Dressing Type: Allevyn Life Dressing Description: Clean/Dry, Intact Exudate Amount: None Integumentary Issue Intervention: Visualized Under Dressing Sofy Wound Tissue: Erythema, Non-blanching Site Measurement - Head-to-Toe Length X Width X Depth (cm): 1x1x0 Pressure Injury Stage: Deep Tissue Injury (DTI) Skin Integrity Problem Comment: Area has progressed to a small deep tissue injury. Tissue intact but more purplish/red. Discussed offloading and that the appearence of his wound had worsened since last assessment, at length with patient as he was sitting up at 90 degrees in bed without offloading his coccyx when wound care arrived. Informed patient that he needs to offload area at all times otherwise it was likely the area would evolve into an open wound. Advised SENAIT Yu use large allevyn sacral dressing instead of small one. All patient questions answered.
--- NOTE | 2016-09-24 12:32 | PDIAF ---
- Diagnosis Diagnosis: gastric outlet obstruction s/p gastrojejunostomy Code Status: Full Code - Medication Management Discharge Medications: Medications to Continue on Transfer Sertraline HCl [Zoloft 50mg (*)] 50 mg PO DAILY 10/27/13 [Last Taken 09/15/16] Esomeprazole Magnesium [Nexium] 20 mg PO DAILY 08/29/16 [Last Taken 09/15/16] Herbals/Supplements -Info Only 1 ea PO DAILY 08/29/16 [Last Taken 09/01/16 18:00 ] Latanoprost 0.005% [Xalatan 0.005% (*)] 1 drops EACHEYE HS 08/29/16 [Last Taken 09/15/16] Melatonin [Melatonin 3 MG (*)] 3 mg PO HS 08/29/16 [Last Taken 09/15/16] Cholecalciferol Vit D3 [Vitamin D3 (*)] 1,000 units PO DAILY 09/01/16 [Last Taken 09/15/16] clonazePAM [Klonopin (*)] 0.75 mg PO HS 09/01/16 [Last Taken 09/15/16] LORazepam [Ativan (*)] 0.5 mg PO HS PRN 09/16/16 [Last Taken 09/15/16] Zofran 4mg/5ml Liquid 5 ml PO Q6 PRN 09/16/16 [Last Taken 09/15/16] Warfarin Sodium [Coumadin 3MG (*)] 3 mg PO DAILY@16 #0 tab 09/24/16 [Last Taken Unknown] Discharge Medications: Refer to the Discharge Home Medication list for PRN reason. - Orders Services needed: Home Care, Registered Nurse Home Care Face to Face: I certify that this patient was under my care and that I had the required [id number] encounter meeting the encounter requirements on the discharge day. My findings support the fact that the patient is homebound as defined in CMS Chapter 7 Medicare Benefits Manual 30.1.1, The condition of the patient is such that there exists a normal inability to leave home and consequently, leaving home would require a considerable and taxing effort. Diet Recommendation: other (soft foods) Weigh Patient: weekly Adam: Not applicable Wound Care Instructions: Area bordering on a deep tissue injury. Tissue intact but more purplish/red. Discussed offloading and that the appearence of his wound had worsened since last assessment, at length with patient as he was sitting up at 90 degrees in bed without offloading his coccyx when wound care arrived. Informed patient that he needs to offload area at all times otherwise it was likely the area would evolve into an open wound. Advise use large allevyn sacral dressing instead of small one, qod. - Follow Up Care Current Providers and Referrals: Mateus Briseno MD [Medical Doctor] - follow up in 1 week Jt Little MD [Primary Care Provider] -
--- NOTE | 2016-09-24 13:59 | DX ---
Limited Single Contrast Upper GI Series Clinical History: 81-year-old male inpatient with a gastrojejunostomy on September 02, 2016 secondary to duodenal stenosis and gastric obstruction, and then developed recurrent nausea vomiting and massiv e gastric distention. Nasogastric tube has been placed, and the patient's symptoms have been improvin g and he is now tolerating clear liquid diet. TECHNIQUE: While the patient was standing, 2 swallows worth of undiluted Gastrografin were fluoroscop ically evaluated subsequently, thin barium was ingested and the patient was imaged in upright, supine , and right lateral decubitus positions. Fluoroscopy Time: 1.2 minutes of (exposure dose of 11.00 mGy). COMPARISON STUDY: Upper GI series, dated 09/16/2016 and 06/13/2016. FINDINGS: The hypopharynx and cervical portion of the esophagus was not completely evaluated. The tho racic esophagus is normal with propulsion of the bolus into the stomach, which is significantly less distended currently than it was on September 16, 2016. I placed the patient in a right lateral decubitu s position to expedite egress into the proximal small bowel, and there is some fold thickening of the valvulae conniventes just beyond the pylorus involving the proximal small bowel. There is also a sma ll barium collection emanating off the cephalad aspect of the small bowel sweep which could represent a diverticulum which does communicate with the lumen of the small bowel sweep, and slightly though i ncompletely empties towards the end of the study. Several cine clips were acquired through this porti on of the anatomy in an attempt to better define it. This does not appear to represent localized cont rast extravasation. The possibility of a communicating ulcer is not entirely excluded, however the pa tient was not focally tender over this portion of the anatomy. There is contrast seen intraluminally to extend into the left upper quadrant at the level of the jejunum. A formal small bowel follow-throu gh series was not performed. IMPRESSION: 1. The stomach is significantly less distended than it was on September 16, 2016, and there is egress o f barium into the proximal small bowel from the stomach. 2. There is a small barium collection seen along the cephalad margin of the small bowel sweep caudal to the pylorus, slightly emptying towards the end of the study and perhaps representing a diverticulu m, however correlation with the surgically reconfigured bowel in this location following gastrojejuno stomy is recommended; a localized ulcer is not excluded, although the patient was not specifically te nder in this location.
--- NOTE | 2016-09-24 16:40 | DX ---
Single View Abdomen Indication: Follow up gastric jejunostomy. Comparison: September 17, 2016. FINDINGS: The PIC line tip is at the mid right atrium. There is some atelectatic change at the left base. Contrast is again seen scattered throughout the small bowel and colon, without evidence of ob struction. IMPRESSIONS 1. Residual contrast throughout the small bowel and colon but no evidence of obstruction. Interval removal of the nasoenteric tube. 2. PICC at the mid right atrium.
== END 2016-09-24 14:20 | disposition home health service (06) | DRG 382 ==
LOC: FIMAGING 07:51 → EDSTATUS 08:00 → F1N 10:50 → OBSVTOIN 09-17 11:49
PROVIDERS: ADMIT Surgery; ATTEND Surgery
PROC: 02HV33Z Insertion of Infusion Device into Superior Vena Cava, Percutaneous Approach (ICD-10-PCS; principal; 2016-09-18)
DX: K31.1 Adult hypertrophic pyloric stenosis (principal); I48.91 Unspecified atrial fibrillation; K21.9 Gastro-esophageal reflux disease without esophagitis; Z93.4 Other artificial openings of gastrointestinal tract status; Z98.0 Intestinal bypass and anastomosis status; Z79.01 Long term (current) use of anticoagulants
CPT/HCPCS: 82947-QW; C1751; G0378; J1650; J2405; J2765

== ENCOUNTER → 2017-02-10 | Outpatient (CLI) | payer OTHER | LOC: FIMAGING 14:11 | PROVIDERS: ATTEND Specialist | DX: N20.0 Calculus of kidney (principal) ==

== ENCOUNTER → 2017-06-03 | Outpatient (CLI) | payer OTHER | LOC: FIMAGING 15:11 | PROVIDERS: ATTEND Physical Medicine & Rehabilitation | DX: M51.36 Other intervertebral disc degeneration, lumbar region (principal); M51.37 Other intervertebral disc degeneration, lumbosacral region; M12.88 Other specific arthropathies, not elsewhere classified, other specified site; M43.16 Spondylolisthesis, lumbar region; M48.06 Spinal stenosis, lumbar region; M99.73 Connective tissue and disc stenosis of intervertebral foramina of lumbar region; M48.02 Spinal stenosis, cervical region; M50.31 Other cervical disc degeneration, high cervical region; M50.321 Other cervical disc degeneration at C4-C5 level; M50.322 Other cervical disc degeneration at C5-C6 level; M99.71 Connective tissue and disc stenosis of intervertebral foramina of cervical region; G95.89 Other specified diseases of spinal cord ==

== ENCOUNTER → 2017-08-04 | Outpatient (CLI) | payer OTHER | LOC: FIMAGING 15:17 | PROVIDERS: ATTEND Specialist | DX: N20.0 Calculus of kidney (principal) ==

== ENCOUNTER → 2017-09-18 | Outpatient (CLI) | payer OTHER | LOC: FIMAGING 13:47 | PROVIDERS: ATTEND Specialist | DX: N20.0 Calculus of kidney (principal); N40.0 Benign prostatic hyperplasia without lower urinary tract symptoms; K57.30 Diverticulosis of large intestine without perforation or abscess without bleeding ==

== ENCOUNTER → 2017-10-01 | Outpatient (CLI) | payer OTHER | LOC: FIMAGING 13:34 | PROVIDERS: ATTEND Internal Medicine | DX: R42 Dizziness and giddiness (principal) ==

== ENCOUNTER → 2017-12-02 | Outpatient (CLI) | payer OTHER | LOC: FIMAGING 15:31 | PROVIDERS: ATTEND Specialist | DX: Z09 Encounter for follow-up examination after completed treatment for conditions other than malignant neoplasm (principal); Z98.890 Other specified postprocedural states ==

== ENCOUNTER → 2018-06-03 | Outpatient (CLI) | payer OTHER | LOC: FIMAGING 15:50 | PROVIDERS: ATTEND Specialist | DX: N20.0 Calculus of kidney (principal) ==

== ENCOUNTER 2018-06-16 11:44 | Emergency (ER) | payer OTHER ==
[2018-06-16 12:10] LABS: PLATELET COUNT 221 10^3/uL (150-400)
--- NOTE | 2018-06-16 12:21 | CPEKG ---
Test Reason : OPEN Blood Pressure : / mmHG Vent. Rate : 062 BPM Atrial Rate : 062 BPM P-R Int : 220 ms QRS Dur : 085 ms QT Int : 411 ms P-R-T Axes : 076 -55 068 degrees QTc Int : 418 ms Sinus rhythm Prolonged NJ interval Left anterior fascicular block Confirmed by Godwin Preston ([id number]) on 06/16/2018 12:20:49 PM Referred By: Confirmed By:Godwin Preston
--- NOTE | 2018-06-16 12:58 | EDPHY ---
H & P Stated Complaint: Pain to face and jaw since 714. Time Seen by Provider: 06/16/18 12:41 HPI/ROS: CHIEF COMPLAINT: Jaw pain HISTORY OF PRESENT ILLNESS: The patient is an 82-year-old man with history of atrial fibrillation on Coumadin who comes to the emergency department stating that he woke up with mild jaw pain this morning at 7:15 a.m.. It seemed to be stiff and sore at bilateral TMJ. His pain resolved with movement and stretching of his mouth. He then noticed a rawness or pain feeling in his trachea when he takes a deep breath. He points to his clavicular notch as the location. This remains present. No shortness of breath. No nausea vomiting. No chest pain. No lightheadedness. He denies any history of coronary artery disease. No palpitations. No lightheadedness. No cough. Severity: Moderate Modifying factors: Resolved REVIEW OF SYSTEMS: Constitutional: denies: chills, fever, recent illness, recent injury EENTM: See HPI denies: blurred vision, double vision, nose congestion Respiratory: denies: cough, shortness of breath Cardiac: denies: chest pain, irregular heart rate, lightheadedness, palpitations Gastrointestinal/Abdominal: denies: abdominal pain, diarrhea, nausea, vomiting, blood streaked stools Genitourinary: denies: dysuria, frequency, hematuria, pain Musculoskeletal: denies: joint pain, muscle pain Skin: denies: lesions, rash, jaundice, bruising Neurological: denies: headache, numbness, paresthesia, tingling, dizziness, weakness Hematologic/Lymphatic: denies: blood clots, easy bleeding, easy bruising Immunologic/allergic: denies: HIV/AIDS, transplant 10 systems reviewed and negative except as noted EXAM: GENERAL: Well-appearing, well-nourished and in no acute distress. HEAD: Atraumatic, normocephalic. EYES: Pupils equal round and reactive to light, extraocular movements intact, sclera anicteric, conjunctiva are normal. ENT: TMs normal, nares patent, oropharynx clear without exudates. Moist mucous membranes. NECK: Normal range of motion, supple without lymphadenopathy or JVD. LUNGS: Breath sounds clear to auscultation bilaterally and equal. No wheezes rales or rhonchi. HEART: Regular rate and rhythm without murmurs, rubs or gallops. ABDOMEN: Soft, nontender, normoactive bowel sounds. No guarding, no rebound. No masses appreciated. BACK: No CVA tenderness, no spinal tenderness, step-offs or deformities EXTREMITIES: Normal range of motion, no pitting or edema. No clubbing or cyanosis. NEUROLOGICAL: Cranial nerves II through XII grossly intact. Normal speech, normal gait. 5/5 strength, normal movement in all extremities, normal sensation , normal reflexes PSYCH: Normal mood, normal affect. SKIN: Warm, dry, normal turgor, no visible rashes or lesions. Source: Patient, Family Exam Limitations: No limitations - Personal History Current Tetanus Diphtheria and Acellular Pertussis (TDAP): Yes - Medical/Surgical History Hx Asthma: No Hx Chronic Respiratory Disease: No Hx Diabetes: No Hx Cardiac Disease: Yes Hx Renal Disease: No Hx Cirrhosis: No Hx Alcoholism: No Hx HIV/AIDS: No Hx Splenectomy or Spleen Trauma: No Other PMH: Atrial fibrillation, irritable bowel disease, kidney stones, diverticulosis - Family History Significant Family History: No pertinent family hx - Social History Smoking Status: Former smoker Alcohol Use: Sober Drug Use: None Constitutional: Initial Vital Signs Temperature (C) 36.8 C 06/16/18 11:45 Heart Rate 75 06/16/18 11:45 Respiratory Rate 18 06/16/18 11:45 Blood Pressure 127/76 H 06/16/18 11:45 O2 Sat (%) 95 06/16/18 11:45 O2 Delivery Mode Room Air Allergies/Adverse Reactions: iodine Allergy (Verified 09/11/12 00:07) Home Medications: Medication Instructions Recorded Sertraline HCl [Zoloft 50mg (*)] 50 mg PO DAILY 10/27/13 Esomeprazole Magnesium [Nexium] 20 mg PO DAILY 08/29/16 Herbals/Supplements -Info Only 1 ea PO DAILY 08/29/16 Latanoprost 0.005% [Xalatan 0.005% 1 drops EACHEYE HS 08/29/16 (*)] Melatonin [Melatonin 3 MG (*)] 3 mg PO HS 08/29/16 Cholecalciferol Vit D3 [Vitamin D3 1,000 units PO DAILY 09/01/16 (*)] clonazePAM [Klonopin (*)] 0.75 mg PO HS 09/01/16 LORazepam [Ativan (*)] 0.5 mg PO HS PRN 09/16/16 Zofran 4mg/5ml Liquid 5 ml PO Q6 PRN 09/16/16 Warfarin Sodium [Coumadin 3MG (*)] 3 mg PO DAILY@16 #0 tab 09/24/16 Medical Decision Making - Diagnostics EKG Interpretation: An EKG obtained and was read and documented in trace view. Please see trace view for full reading and report. Sinus rhythm, first-degree block, no acute ischemic changes A repeat EKG obtained and was read and documented in trace view. Please see trace view for full reading and report. Unchanged from previous Imaging: Discussed imaging studies w/ sample finisher Radiologist ED Course/Re-evaluation: Patient has a normal exam and a reassuring EKG and troponin. I do not suspect PE. No sign of infection. I will obtain a chest x-ray. His heart score is 2. We discussed options including admission. He does not want to be admitted to the hospital. Will repeat his EKG and troponin at 2:00 p.m.. 2:30 p.m. the patient's repeat troponin and EKG are reassuring. He remains asymptomatic stress chest pain shortness of breath. He may have some slight sore throat from receiving flu vaccination 2 days ago or have onset of viral symptoms etc. It is unclear. He is eager to go home. We discussed indications for returning. Differential Diagnosis: Partial list of the Differential diagnosis considered include but were not limited to; jaw pain, sore throat, acute coronary disease and although unlikely based on the history and physical exam, I also considered PE, pneumonia , pneumothorax, dissection. I discussed these differential diagnoses and the plan with the patient as well as the usual and expected course. The patient understands that the diagnosis is provisional and that in medicine we are not always correct and that further workup is often warranted. Usual and customary warnings were given. All of the patient's questions were answered. The patient was instructed to return to the emergency department should the symptoms at all worsen or return, otherwise to followup with the physician as we discussed. - Data Points Laboratory Results: Laboratory Results 06/16/18 11:58 06/16/18 11:58 Point of Care Test Results: Chemistry 06/16/18 06/16/18 14:18 11:59 POC Troponin I 0.01 ng/mL ng/mL 0.03 ng/mL ng/mL (0.00-0.08) (0.00-0.08) Departure - Departure Disposition: Home, Routine, Self-Care Clinical Impression: Pain in jaw not originating in temporomandibular joint, Vaccination side effects Condition: Fair Instructions: Temporomandibular Disorder (ED), Influenza Vaccine (ED), Chest Pain (ED) Referrals: Patient,NotPresent [Primary Care Provider] - As per Instructions Jt Little MD [Medical Doctor] - 2-3 days, call for appt.
--- NOTE | 2018-06-16 14:23 | CPEKG ---
Test Reason : OPEN Blood Pressure : / mmHG Vent. Rate : 064 BPM Atrial Rate : 064 BPM P-R Int : 213 ms QRS Dur : 085 ms QT Int : 422 ms P-R-T Axes : 078 -59 063 degrees QTc Int : 436 ms Sinus rhythm Borderline prolonged ND interval Left anterior fascicular block Confirmed by Godwin Preston ([id number]) on 06/16/2018 2:22:45 PM Referred By: Confirmed By:Godwin Preston
[2018-06-16 15:32] VITALS: BP 115/79
== END 2018-06-16 15:00 | disposition home or self-care (01) ==
DX: R68.84 Jaw pain (principal); T50.Z95A Adverse effect of other vaccines and biological substances, initial encounter; I48.91 Unspecified atrial fibrillation; Z79.01 Long term (current) use of anticoagulants; J43.9 Emphysema, unspecified
CPT/HCPCS: 84484-PO

== ENCOUNTER → 2018-08-10 | Outpatient (CLI) | payer OTHER | LOC: FIMAGING 14:57 | PROVIDERS: ATTEND Specialist | DX: N20.0 Calculus of kidney (principal); M25.78 Osteophyte, vertebrae ==

== ENCOUNTER 2018-08-23 18:02 | Observation (INO) | payer OTHER ==
[2018-08-23 19:16] LABS: PLATELET COUNT 208 10^3/uL (150-400)
[2018-08-23] MEDS ORDERED: KETOROLAC 30 MG/1 ML SDV IVP ONE (19:32)
--- NOTE | 2018-08-23 19:36 | EDPHY ---
H & P Stated Complaint: Recent kidney stone, continued pain to left flank Time Seen by Provider: 08/23/18 18:35 HPI/ROS: CHIEF COMPLAINT: Left lower quadrant pain HISTORY OF PRESENT ILLNESS: 82-year-old male with kidney stones presents with left lower quadrant pain. Onset of gross hematuria 2 weeks ago. He had a noncontrast CT urogram scan today that demonstrated a left calyceal stone measuring 7 x 4 x 7 mm. Onset of severe waxing and waning left flank/abdominal pain starting at 3:00 p.m.. No associated symptoms. No alleviating or aggravating factors. Similar to prior renal colic. REVIEW OF SYSTEMS: complete 10 point ROS reviewed and is negative except for the noted elements in the HPI - Personal History Current Tetanus Diphtheria and Acellular Pertussis (TDAP): Yes - Medical/Surgical History Hx Asthma: No Hx Chronic Respiratory Disease: No Hx Diabetes: No Hx Cardiac Disease: Yes Hx Renal Disease: Yes Hx Cirrhosis: No Hx Alcoholism: No Hx HIV/AIDS: No Hx Splenectomy or Spleen Trauma: No Other PMH: Atrial fibrillation, irritable bowel disease, kidney stones, diverticulosis - Social History Smoking Status: Former smoker Alcohol Use: Sober Drug Use: None Additional Social History: - Physical Exam Exam: General Appearance: Alert, pleasant Eyes: Pupils equal and round, no conjunctival pallor or injection ENT, Mouth: Mucous membranes moist Neck: Normal inspection Respiratory: Lungs are clear to auscultation Cardiovascular: Regular rate and rhythm Gastrointestinal: Abdomen is soft, left upper quadrant tenderness Back: No CVA tenderness Neurological: A&O, nonfocal exam Skin: Warm and dry, no rash Extremities: Nontender, no pedal edema Psychiatric: Mood and affect normal Constitutional: Initial Vital Signs Temperature (C) 36.8 C 08/23/18 18:08 Heart Rate 61 08/23/18 18:08 Respiratory Rate 18 08/23/18 18:08 Blood Pressure 138/85 H 08/23/18 18:08 O2 Sat (%) 99 08/23/18 18:08 O2 Delivery Mode Room Air Allergies/Adverse Reactions: iodine Allergy (Verified 09/11/12 00:07) Home Medications: Medication Instructions Recorded Sertraline HCl [Zoloft 50mg (*)] 50 mg PO HS 10/27/13 Latanoprost 0.005% [Xalatan 0.005% 1 drops EACHEYE HS 08/29/16 (*)] Melatonin [Melatonin 3 MG (*)] 0.25 mg PO HS 08/29/16 Cholecalciferol Vit D3 [Vitamin D3 1,000 units PO DAILY 09/01/16 (*)] clonazePAM [Klonopin (*)] 0.25 mg PO BID@2330,0000 09/01/16 Warfarin Sodium [Coumadin 3MG (*)] 1.5 mg PO TU@0900 08/23/18 Warfarin Sodium [Coumadin 3MG (*)] 3 mg PO SUMOWETHFRSA@0900 08/23/18 Medical Decision Making - Diagnostics Imaging Results: Abdomen/Pelvis CT 08/23/18 19:32 IMPRESSION: 1. Interval development of moderate left hydronephrosis and perinephric stranding secondary to obstructing stones in the distal ureter and the UVJ. Ureteroscopic evaluation is recommended. 2. Stable stone in the left posterior, inferior renal calyx. Adrienne Reginald was notified of these findings by telephone at 9:12 PM on 2017 Imaging: Discussed imaging studies w/ square dance caller Radiologist ED Course/Re-evaluation: This patient presents with severe left flank pain, with CT scan today demonstrating and intrarenal calculus. Options discussed with the patient, including KUB your CT scan to evaluate the location of the stone. The patient states that the stone was not previously visualized on KUB and requests a CT scan of the abdomen and pelvis. Toradol [address] scan of the abdomen pelvis reveals multiple ureteral stones, the largest at the UVJ measuring 6 mm, associated with hydronephrosis. Discussed with the patient, the patient would like to be admitted for pain control and possible operative procedure in the morning. The hospitalist service was consulted for admission. Dr. George was consulted, requests that the patient is NPO tonight. Urology will see the patient in the morning. Differential Diagnosis: Differential diagnosis includes though it is not limited to appendicitis, cholecystitis, diverticulitis, pyelonephritis, bowel perforation, small bowel obstruction. - Data Points Laboratory Results: Laboratory Results 08/23/18 18:50 08/23/18 18:50 Medications Given: Clonazepam (Klonopin) 0.25 mg PO BID@2330,0000 [facility] Stop: 02/19/19 23:29 Last Admin: 08/24/18 00:08 Dose: Not Given Sodium Chloride (Ns) 1,000 mls @ 100 mls/hr IV CONT MIYA Stop: 02/19/19 22:14 Last Admin: 08/23/18 23:16 Dose: 1,000 mls Latanoprost (Xalatan 0.005%) 1 drops EACHEYE [facility] Stop: 02/19/19 23:29 Last Admin: 08/23/18 23:55 Dose: 1 drop Melatonin (Melatonin) 3 mg PO HS [facility] Stop: 02/19/19 23:29 Last Admin: 08/23/18 23:53 Dose: 3 mg Sertraline HCl (Zoloft) 50 mg PO [facility] Stop: 02/19/19 23:29 Last Admin: 08/23/18 23:53 Dose: 50 mg Discontinued Medications Hydromorphone HCl (Dilaudid) 0.5 mg IVP EDNOW ONE Stop: 08/23/18 21:35 Last Admin: 08/23/18 21:38 Dose: 0.5 mg Sodium Chloride (Ns) 1,000 mls @ 0 mls/hr IV ONCE ONE; Wide Open PRN Reason: Protocol Stop: 08/23/18 20:23 Last Admin: 08/23/18 20:26 Dose: 1,000 mls Lactated Ringer's (Lr) 1,000 mls @ 0 mls/hr IV ONCE ONE PRN Reason: As Directed Stop: 08/24/18 10:50 Last Admin: 08/24/18 10:54 Dose: 1,000 mls Ketorolac Tromethamine (Toradol) 15 mg IVP EDNOW ONE Stop: 08/23/18 19:33 Last Admin: 08/23/18 19:58 Dose: 15 mg Ondansetron HCl (Zofran) 4 mg IVP EDNOW ONE Stop: 08/23/18 21:35 Last Admin: 08/23/18 21:38 Dose: 4 mg Phytonadione (Vitamin K) 5 mg PO ONCE ONE Stop: 08/23/18 23:46 Last Admin: 08/23/18 23:52 Dose: 5 mg Departure - Departure Disposition: [facility] Acute Clinical Impression: Ureteral calculus, left Condition: Fair
[2018-08-23] MEDS ORDERED: KETOROLAC 15 MG/1 ML SDV ONE (19:57)
[2018-08-23] MEDS ORDERED: NS 1,000 ML IV ONE (20:22)
[2018-08-23 20:57] LABS: INR 3.24 (0.83-1.16); PROTIME(PATIENT) 32.9 SEC (12.0-15.0)
[2018-08-23] MEDS ORDERED: HYDROmorphONE/DILAUDID 2 MG/ML INJ IVP ONE (21:34)
[2018-08-23] MEDS ORDERED: ONDANSETRON 4 MG/2 ML VIAL IVP ONE (21:34)
[2018-08-23] MEDS ORDERED: HYDROCODONE/APAP 5/325 TAB PO PRN (22:11)
[2018-08-23] MEDS ORDERED: ONDANSETRON 4 MG/2 ML VIAL IVP PRN (22:11)
[2018-08-23] MEDS ORDERED: ACETAMINOPHEN 325 MG TAB PO PRN (22:11)
[2018-08-23] MEDS ORDERED: ONDANSETRON DISINTEGRATING 4 MG TAB PO PRN (22:11)
[2018-08-23] MEDS ORDERED: NS 1,000 ML IV SCH (22:15)
[2018-08-23] MEDS ORDERED: PHYTONADIONE 2.5 MG/2.5 ML ORAL UDL PO ONE ×2 (22:20→23:45)
[2018-08-23] MEDS ORDERED: SERTRALINE HCL 50 MG TAB PO SCH (23:30)
[2018-08-23] MEDS ORDERED: MELATONIN 3 MG TAB PO SCH (23:30)
[2018-08-23] MEDS ORDERED: LATANOPROST 0.005% 2.5 ML OPHT DROPS EACHEYE SCH (23:30)
[2018-08-23] MEDS: clonazePAM 0.5 MG TAB PO SCH (23:53)
[2018-08-24] MEDS: clonazePAM 0.5 MG TAB PO SCH (00:08)
--- NOTE | 2018-08-24 00:58 | GHP ---
DATE OF ADMISSION: 08/23/2018 Patient provides history, appears reliable. EMR was reviewed and case discussed with ED provider. CHIEF COMPLAINT: Left flank pain. HISTORY OF PRESENT ILLNESS: Very pleasant 82-year-old gentleman with a past medical history signific ant for kidney stones, IBS, diverticulosis, anxiety, AFib on Coumadin, glaucoma, chronic back pain du e to spinal stenosis, and GERD, who presents to the emergency department today with new onset of left -sided flank pain. This started approximately 3 p.m. Patient reports he had waxing and waning of le ft flank pain that radiated to his left lower abdomen. He denies any nausea, vomiting, fevers, or ch ills. Patient with increasing pain and presented to the emergency department for additional evaluati on. Patient does report that he had hematuria 2 weeks ago. He has not had any dysuria or frequency. Patient did undergo CT abdomen and pelvis with and without contrast earlier today that showed infer ior caliceal stone on the left, not causing obstruction, otherwise negative. Severe spinal stenosis L2, L3, L4, L5, and sigmoid diverticulosis, and that was shortly before patient's onset of pain. He returned to the ER, and a repeat CT showed interval development of moderate left hydronephrosis and p erinephric stranding secondary to obstructing stone in the distal ureter in the UVJ. Stable left pos terior, inferior renal calyx. In the emergency department, patient was given IV fluids, Toradol with resolution of his pain. REVIEW OF SYSTEMS: 10 systems reviewed and negative, except as noted above. ALLERGIES: Iodine, not contrast. PAST MEDICAL HISTORY: Significant for paroxysmal atrial fibrillation on Coumadin. Patient reports h is last episode of AFib was 8 years ago. Anxiety, IBS, diverticulosis, history of kidney stones requ iring interventions, spinal stenosis resulting in chronic back pain, history of gastric outlet obstru ction requiring gastrojejunostomy, hiatal hernia, glaucoma. PAST SURGICAL HISTORY: Significant for multiple orthopedic surgeries including elbow, foot, knee, an d right 2nd trigger finger release. He has had bilateral inguinal hernia repairs, tonsillectomy, oanh noidectomy, cataract extraction with lens placement bilaterally, lithotripsy. FAMILY HISTORY: Father with history of kidney stones. SOCIAL HISTORY: Patient is coming up on 61 years. 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 Does not smoke, drink, or utilize any illicit drugs. CODE STATUS: Full. PHYSICAL EXAM: VITAL SIGNS UPON ARRIVAL TO THE EMERGENCY DEPARTMENT: Blood pressure 138/85, heart r ate 61, respiratory rate 18, O2 sat 99% on room air, temperature 36.8. VITALS CURRENTLY AVAILABLE: Blood pressure 116/71, heart rate 79, respiratory rate 16, O2 sat 96% on room air, temperature 36.8. GENERAL: No acute distress. Very pleasant, elderly, thin, frail-appearing gentleman is lying quiet ly in bed. He is in good spirits. HEAD: Normocephalic, atraumatic. EYES: Extraocular muscles marcia ssly intact. Pupils equal, round, slightly decreased reactivity to light bilaterally but symmetric. No scleral icterus or conjunctival injection. ENT: Mucous membranes appear moist. No oropharyngea l erythema or exudates. No nasal discharge. NECK: Supple. Trachea midline. CV: Regular rate and rhythm in the 70s. No murmurs, rubs, or gallops appreciated. RESPIRATORY: Unlabored breathing. L ungs are clear to auscultation bilaterally. No wheezes, rales, or rhonchi. ABDOMEN: Soft, thin dodson ld. Hypoactive bowel sounds. Patient with a midabdominal scar that is well healed. No rebound, gua rding, or masses appreciated. : No suprapubic tenderness to palpation. No CVA tenderness. No Fo marisa catheter in place. MUSCULOSKELETAL: Patient with some generalized deconditioning, but he is abl e to sit up independently. Moves all extremities. Strength intact. NEURO: Grossly nonfocal. No f acial drooping. Moves extremities as noted above. PSYCH: Thought process, content, and questions a re all appropriate. Patient is awake, alert, and oriented x3. Patient is pleasant and cooperative. LABORATORY STUDIES: 1. WBC is 8.33, H and H are 13.8 and 40.5, platelet count is 208, no bands. 2. PT is 32.9, INR is 3.24. 3. Sodium is 137, potassium is 4.2, chloride is 107, CO2 is 17, anion gap 13, BUN 25, creatinine is 1.0. Baseline creatinine appears to be 0.6. GFR greater than 60, glucose 100, calcium is 9.4. 4. UA: Specific gravity of greater than 1.035 with a pH of 7.0, 2+ blood, RBCs 50-182, otherwise ne gative. IMAGING STUDIES: As noted in HPI. CT abdomen and pelvis without contrast noting an interval develop ment of moderate left hydronephrosis and perinephric stranding secondary to obstructing stone in dist al ureter and UVJ and a stable calyx stone. ASSESSMENT AND PLAN: A very pleasant 82-year-old gentleman presents with complaints of sudden onset of left flank pain, known history of stones. 1. Left nephrolith, obstructing nephrolithiasis with hydronephrosis. Patient was given a dose of To radol in the emergency department. His pain is currently under control. Given patient is on Coumadi n, will hold his anticoagulation as well as additional nonsteroidal antiinflammatory drug dosing. Lo w-dose morphine and Tylenol. [place] available as needed. Dr. George with Urology was consulted from [facility] emergency department and will see the patient in the morning. Anticipating additional intervention . Patient has been given a dose of vitamin K for his elevated INR on Coumadin. Will plan to intrave nous hydrate overnight and repeat PT/INR in the morning. The patient has been made nothing by mouth after midnight. 2. Flank pain, currently controlled as noted above. 3. Chronic medical issues. 4. History of irritable bowel syndrome symptoms, currently controlled. 5. Paroxysmal atrial fibrillation, currently sounds regular. Patient is not on any rate control. H e reports he has not been in atrial fibrillation in 8 years. Holding anticoagulation as noted above. 6. Supratherapeutic INR, greater than 3.0. Vitamin K is planned as noted above. Patient will be ty ped and screened in the morning should he require any fresh frozen plasma for additional reversal of his INR before procedure. 7. Anxiety. Continue patient's clonazepam. 8. Insomnia. Continue patient's melatonin. 9. Gastroesophageal reflux disease. Patient currently asymptomatic. 10. Chronic back pain. Patient reports that he does stretching. Tylenol available as needed. 11. Fluid, electrolyte, nutrition. Intravenous fluids. Received a 1 L bolus in the emergency depar tment. Will plan with some gentle intravenous fluid hydration overnight while nothing by mouth. Ada ctrolytes are adequate at this time. Did not require replacement. Patient is nothing by mouth after midnight for anticipated procedure. 12. Prophylaxis. Patient has supratherapeutic INR. Does not really require sequential compression devices at this time. 13. COR status is full. 14. Disposition. Patient admitted to observation status on the Medical/Surgical floor at this time pending Urology evaluation and anticipated intervention. /[id number]/MODL
[2018-08-24 05:28] LABS: INR 2.81 (0.83-1.16); PROTIME(PATIENT) 29.5 SEC (12.0-15.0)
[2018-08-24] MEDS ORDERED: LR 1,000 ML IV ONE (10:49)
[2018-08-24] MEDS ORDERED: ceFAZolin 2 GM/DEXTROSE 100 ML IV ONE (11:45)
--- NOTE | 2018-08-24 11:55 | PDANEPAE ---
ANE History of Present Illness pt with ureterolithiasis, here for ureteroscopy, laser lithotripsy ANE Past Medical History - Cardiovascular History Hx Hypertension: No Hx Arrhythmias: Yes Hx Chest Pain: No Hx Coronary Artery / Peripheral Vascular Disease: No Hx CHF / Valvular Disease: No Hx Palpitations: No Cardiovascular History Comment: AFib - Pulmonary History Hx COPD: No Hx Asthma/Reactive Airway Disease: No Hx Recent Upper Respiratory Infection: No Hx Oxygen in Use at Home: No Hx Sleep Apnea: Yes Sleep Apnea Screening Result - Last Documented: Positive - Neurologic History Hx Cerebrovascular Accident: No Hx Seizures: No Hx Dementia: No - Endocrine History Hx Diabetes: No - Renal History Hx Renal Disorders: Yes Renal History Comment: KIDNEY STONES 10 YRS AGO ON RIGHT AND A STONE CURRENTLY IN LEFT KIDNEY; REMAINS ASYMPTOMATIC - NO INTERVENTION NEEDED - Liver History Hx Hepatic Disorders: No - Neurological & Psychiatric Hx Hx Neurological and Psychiatric Disorders: Yes Neurological / Psychiatric History Comment: 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 LEFT KNEE MENISCUS SURGERY 2014. RIGHT HAND SURGERY 2013. RIGHT ELBOW MICRO SURGERY 2010. HIATAL HERNIA SURGERY X2. RIGHT KNEE MENISCUS SURGERY 15 YRS AGO ANE Review of Systems Review of Systems: - Exercise capacity Exercise capacity: >=4 METS ANE Patient History - Allergies Allergies/Adverse Reactions: iodine Allergy (Verified 09/11/12 00:07) - Home Medications Home Medications: Sertraline HCl [Zoloft 50mg (*)] 50 mg PO HS 10/27/13 [Last Taken 08/22/18] Latanoprost 0.005% [Xalatan 0.005% (*)] 1 drops EACHEYE HS 08/29/16 [Last Taken 08/22/18] Melatonin [Melatonin 3 MG (*)] 0.25 mg PO HS 08/29/16 [Last Taken 08/22/18] Cholecalciferol Vit D3 [Vitamin D3 (*)] 1,000 units PO DAILY 09/01/16 [Last Taken 08/22/18] clonazePAM [Klonopin (*)] 0.25 mg PO BID@2330,0000 09/01/16 [Last Taken 08/22/18 ] Warfarin Sodium [Coumadin 3MG (*)] 1.5 mg PO TU@0900 08/23/18 [Last Taken ] Warfarin Sodium [Coumadin 3MG (*)] 3 mg PO SUMOWETHFRSA@0900 08/23/18 [Last Taken 08/23/18] - NPO status NPO Status: no food or drink >8 hours NPO Since - Liquids (Date): 08/24/18 NPO Since - Liquids (Time): 00:00 NPO Since - Solids (Date): 08/24/18 NPO Since - Solids (Time): 00:00 - Anes Hx Anes Hx: post operative cognitive dysfunction, slow to awaken from anesthesia - Smoking Hx Smoking Status: Former smoker - Alcohol Use Alcohol Use: Sober ANE Labs/Vital Signs - Labs Result Diagrams: 08/24/18 04:54 08/24/18 04:54 - Vital Signs Blood Pressure: 119/66 Heart Rate: 59 Respiratory Rate: 16 O2 Sat (%): 97 Height: 182.88 cm Weight: 63.185 kg ANE Physical Exam - Airway Neck exam: decreased ROM Mallampati Score: Class 2 Mouth exam: normal dental/mouth exam - Pulmonary Pulmonary: no respiratory distress - Cardiovascular Cardiovascular: regular rate and rhythym - ASA Status ASA Status: III ANE Anesthesia Plan Anesthesia Plan: general endotracheal anesthesia
[2018-08-24] MEDS ORDERED: fentaNYL 100 MCG/2 ML INJ ONE (12:06)
[2018-08-24] MEDS ORDERED: PROPOFOL 200 MG/20 ML VIAL ONE (12:06)
[2018-08-24] MEDS ORDERED: LIDOCAINE 2% 100 MG/5 ML SYR ONE (12:06)
[2018-08-24] MEDS ORDERED: ONDANSETRON 4 MG/2 ML VIAL IVP PRN (13:43)
[2018-08-24] MEDS ORDERED: HYDROCODONE/APAP 5/325 TAB PO PRN (13:43)
[2018-08-24] MEDS ORDERED: NALOXONE HCL 0.4 MG/ML INJ IVP PRN (13:43)
[2018-08-24] MEDS ORDERED: ACETAMINOPHEN 500 MG TAB PO PRN (13:43)
[2018-08-24] MEDS ORDERED: PROMETHAZINE HCL 25 MG/ML INJ IVP PRN (13:43)
[2018-08-24] MEDS ORDERED: fentaNYL 100 MCG/2 ML INJ IVP PRN (13:43)
[2018-08-24] MEDS ORDERED: oxyCODONE IR 5 MG TAB PO PRN (13:43)
--- NOTE | 2018-08-24 13:49 | POSTANESTH ---
Post Anesthetic Evaluation Cardiovascular Status: Normal, Stable, Similar to Pre-Op Cond Respiratory Status: Normal, Stable, Similar to Pre-op Cond. Level of Consciousness/Mental Status: Can Participate in Eval, Alert and Oriented Pain Control: Adequate, Prn Tx Ordered Nausea/Vomiting Control: Adequate, Prn Tx Ordered Complications Possibly Related to Anesthesia: None Noted
--- NOTE | 2018-08-24 13:49 | ASMTCMCOM ---
CM Note CM Note Notes: Plan of care reviewed in rounds. 82 year old male admitted via ED fro c/o left flank pain with known stone and new development of hydronephrsis. No needs anticipated at this time. CM availale should needs arise. Plan: Likely to discharge to home independently when medically cleared for discharge. Plan: As above Date Signed: 08/24/2018 01:48 PM Electronically Signed By:Jeanette Mar RN
--- NOTE | 2018-08-24 14:38 | GOP ---
DATE OF OPERATION: 08/24/2018 SURGEON: Rashawn Huddleston MD PREOPERATIVE DIAGNOSIS: Left ureterolithiasis with hydronephrosis. POSTOPERATIVE DIAGNOSIS: Left ureterolithiasis with hydronephrosis. PROCEDURE PERFORMED: Cystoscopy retrograde ureteral pyelogram, dilation of the ureter, laser lithotr ipsy of multiple ureteral stones, and placement of 4 points of a Multi-Link ureteral stent under fluo roscopy. FINDINGS: DESCRIPTION OF PROCEDURE: Underwent general anesthesia. After being prepped and draped in normal st erile fashion in dorsal lithotomy position, an appropriate time-out, identifying appropriate marked s elo. Cystoscopy noted he had some BPH. Bladder had hypervascularity. Left ureteral orifice was can nulated with an angled Glidewire, and then, I was able to pass the ureteral access dilating sheath, t he inner working part up the ureter, and then with the semi-rigid scope, could go up and he had 3 elo ntifiable stones that were fragmented with the laser. I used the Holmium laser 273 micron fiber. To raghu energy was 1474 joules at 7 cruz 10 pulses per second, and after fragmenting the stones, extract ed those with a stone basket. There was no residual stones noted in the distal ureter. Because of h is Coumadin, he has actually had some bleeding that was a little more from the urethra, but then, ure teral stent was passed over guidewire that curled in renal pelvis, curled in the bladder, and then, U ro-Jet placed in urethra, and Adam catheter placed. He will be continued admission per ospitalist and have his stent removed in approximately 2 weeks. /[id number]/MODL
[2018-08-24 17:31] VITALS: BP 141/80
--- NOTE | 2018-08-24 18:34 | GCON ---
DATE OF CONSULTATION: 08/24/2018 REASON FOR CONSULT: Left ureteral stone, left flank pain. HISTORY OF PRESENT ILLNESS: This is a pleasant 82-year-old male who is well-known to our office and in fact seen by Dr. Lovett. Past medical history of kidney stones. The patient reports that he pres ented with worsening left-sided flank pain. It has been intermittent once it began yesterday. At this time currently, he reports it is not as severe. He is denying nausea, vomiting, fever, chills. He d shockwave lithotripsy for stones on the left side down at [facility] some time in the last calendar year. He had a CT while he was here in the hospital that shows left distal stones. Repe at CT shows new left hydronephrosis likely from left UVJ stones with perinephric stranding. PAST MEDICAL HISTORY: Paroxysmal atrial fibrillation on Coumadin, anxiety, IBS, diverticulosis, hist ory of kidney stones requiring shockwave (no ureteroscopy), history of spinal stenosis, chronic back pain, gastric outlet obstruction requiring a gastrojejunostomy, hiatal hernia, glaucoma. PAST SURGICAL HISTORY: Kidney stones; orthopedic surgeries elbow, foot, knee, trigger fingers; bilat eral inguinal hernia repairs; tonsillectomy; adenoidectomy; cataract extraction; lithotripsy. FAMILY HISTORY: Father with kidney stones. SOCIAL HISTORY: . 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 Does not smoke, drink, or use drugs. ALLERGIES: Iodine and contrast. MEDICATIONS: Please see MAR. REVIEW OF SYSTEMS: 10-point review of systems negative except as mentioned in HPI. LABORATORY DATA: His white blood cell count is 8.33, hemoglobin 13.8, hematocrit 40.5, platelets 208 . Coagulation: INR is 2.81. Chemistry: Sodium 139, potassium 4.2, chloride 110, CO2 20, anion gap 9, BUN 33, creatinine 1.0, glucose 90, calcium 8.3. Urinalysis: Positive for blood. CT of the abdomen an d pelvis which I have reviewed personally. Recent CT showing left-sided hydronephrosis, left renal st one, perinephric stranding, likely due to [place] of the left UVJ seen on imaging done several d ays prior. ASSESSMENT AND PLAN: Left ureteral stone, left flank pain. Discussed options with the patient includ ing surgical management of stones. He desires to have them surgically treated. After discussion of e risks and benefits, he consents to a ureteroscopy with Dr. Huddleston. /[id number]/JYOTSNAL
--- NOTE | 2018-08-25 03:51 | GDS ---
ALL PROCEDURES: Cystoscopy with laser lithotripsy as well as ureteral stent placement. ALL DIAGNOSES: 1. Left-sided ureterolithiasis with mild left-sided hydronephrosis, status post lithotripsy and uret eral stent placement. 2. History of paroxysmal atrial fibrillation. 3. Supratherapeutic INR with initial INR of 3.2, status post 5 mg of vitamin K with an INR of 2.81 o n discharge. HOSPITAL COURSE: 82-year-old man presented with left flank pain. Found to have an obstructive left ureterolithiasis. Dr. Huddleston took him to the operating room and performed stone removal with laser li thotripsy as well as stent placement. Adam was placed during that time. The patient tolerated the procedure well. Adam will be discontinued before discharge. If he is unable urinate, then Aadm ma y need to be replaced. He does have some mild serosanguineous thin-appearing urine. I have given hi m instructions to hold his Coumadin for another day. If he has ongoing hematuria, he should call Dr. Huddleston or Dr. Lovett for ongoing management of this. I have given him warning precautions that if he is unable to urinate that he needs to return to the emergency department. Otherwise, if his urine clears, I have recommended that he restart warfarin the day after discharge. At the time of discharge, he has no significant flank pain. He is tolerating food. I have made no o ther medication changes other than holding his warfarin as above. FOLLOW UP: 1. Follow up with his primary care physician, Dr. Little. 2. Follow up with Dr. Law, his urologist, for ongoing management of his nephrolithiasis. He wi ll also need stent removal in 2 weeks. He is aware of this. /[id number]/MODL
== END 2018-08-24 18:30 | disposition home or self-care (01) ==
LOC: F1N 22:49
PROVIDERS: ADMIT Internal Medicine; ATTEND Internal Medicine
DX: N13.2 Hydronephrosis with renal and ureteral calculous obstruction (principal); I48.0 Paroxysmal atrial fibrillation; E86.9 Volume depletion, unspecified; Z79.01 Long term (current) use of anticoagulants; K57.90 Diverticulosis of intestine, part unspecified, without perforation or abscess without bleeding
CPT/HCPCS: 52332; 52352; 74176; 76001; 96361; 96374; 96375; 99285; C1769; C1894; C2625; G0378; J0690; J1170; J1885; J2001; J2405; J2704; J3010; 82365-90

== ENCOUNTER → 2018-08-23 | Outpatient (CLI) | payer OTHER ==
[~2018-08-23] MED LIST: IOPAMIDOL (ISOVUE-300) 200 ML BTL ONE
== END ==
LOC: FIMAGING 14:16
PROVIDERS: ATTEND Specialist
DX: R31.0 Gross hematuria (principal); N20.0 Calculus of kidney
CPT/HCPCS: 74178; Q9967; 82565-PO

== ENCOUNTER → 2018-09-17 | Outpatient (CLI) | payer OTHER | LOC: FIMAGING 10:03 | PROVIDERS: ATTEND Specialist | DX: N20.1 Calculus of ureter (principal) ==

== ENCOUNTER → 2018-10-08 | Outpatient (CLI) | payer OTHER | LOC: FIMAGING 14:14 | PROVIDERS: ATTEND Specialist | DX: N20.0 Calculus of kidney (principal); K59.00 Constipation, unspecified ==

== ENCOUNTER → 2018-11-02 | Outpatient (CLI) | payer OTHER | LOC: FIMAGING 14:49 | PROVIDERS: ATTEND Specialist | DX: Z09 Encounter for follow-up examination after completed treatment for conditions other than malignant neoplasm (principal); Z87.442 Personal history of urinary calculi ==